=== PATIENT | female | born 1950 | race Caucasian/White ===

== ENCOUNTER 2019-08-26 13:16 | Inpatient (IN) | payer MEDICARE, MEDICAID ==
[~2019-08-26] VITALS: Wt 76.4 kg
[2019-08-26] MEDS ORDERED: ATIVAN0.5 MG PO (13:58)
[2019-08-26] MEDS ORDERED: CARDIZEM CD180 MG PO (13:58)
[2019-08-26] MEDS ORDERED: COMBIVENT RESPIM4 GM INH (13:59)
[2019-08-26] MEDS ORDERED: FLONASE ALLERG9.9 ML NAS (14:00)
[2019-08-26] MEDS ORDERED: PROZAC40 M1 PO (14:00)
[2019-08-26] MEDS ORDERED: MIRALAX17 GM PO ×2 (14:01→14:04)
[2019-08-26] MEDS ORDERED: HEMORRHOID 1%-156 GM R (14:02)
[2019-08-26] MEDS ORDERED: LASIX20 MG PO (14:03)
[2019-08-26] MEDS ORDERED: ALEVE220 MG PO (14:05)
[2019-08-26] MEDS ORDERED: NYSTATIN1 EAC3 T (14:06)
[2019-08-26] MEDS ORDERED: K-TAB10 MEQ PO (14:08)
[2019-08-26] MEDS ORDERED: OMEPRAZOLE40 MG PO (14:10)
[2019-08-26] MEDS ORDERED: SENNA PLUS 8.61 EACH PO (14:11)
[2019-08-26] MEDS ORDERED: SEROQUEL XR400 MG PO (14:11)
[2019-08-26] MEDS ORDERED: SYNTHROID,LEVO75 MCG PO (14:12)
[2019-08-26] MEDS ORDERED: TRAZODONE50 MG PO (14:13)
[2019-08-26] MEDS ORDERED: ZOFRAN4 MG PO (14:14)
[2019-08-26] MEDS ORDERED: ZYRTEC ALLERGY10 MG PO (14:15)
[2019-08-26 15:49] VITALS: BP 143/90
[2019-08-26 19:49] VITALS: BP 126/68
[2019-08-27 06:44] LABS: BASO # 0.1 10*3/uL (0.0-0.1); BASO % 0.5 % (0.0-1.0); EOS # 0.3 10*3/uL (0.0-0.4); EOS % 2.6 % (1.0-4.0); HEMATOCRIT 37.8 % (37.0-47.0); LYMPH # 1.4 10*3/uL (1.3-4.4); LYMPH % 13.9 % (27.0-41.0); MEAN CELL VOLUME 95.2 fl (81.0-99.0); MEAN CORPUSCULAR HGB 31.2 pg (27.0-31.0); MEAN CORPUSCULAR HGB CONC 32.8 g/dl (33.0-37.0); MEAN PLATELET VOLUME 11.2 fl (9.6-12.3); MONO # 0.6 10*3/uL (0.1-1.0); MONO % 6.4 % (3.0-9.0); NEUT # 7.4 10*3/uL (2.3-7.9); NEUT % 76.3 % (47.0-73.0); PLATELET COUNT AUTOMATED 300 10*3/uL (130-400); RED BLOOD COUNT 3.97 10*6/uL (4.10-5.10); RED CELL DISTRI WIDTH 15.2 % (0-14.5); WHITE BLOOD COUNT 9.7 10*3/uL (4.8-10.8)
[2019-08-27 07:12] LABS: CHLORIDE 107 mmol/L (98-107); POTASSIUM 3.9 mmol/L (3.5-5.1); SODIUM 139 mmol/L (136-145)
[2019-08-27 07:39] LABS: ALBUMIN 3.3 gm/dl (3.1-4.5); ALKALINE PHOSPHATASE 166 U/L (45-117); BUN 12 mg/dl (7-24); CHOLESTEROL 179 mg/dL (<200); CREATININE 1.05 mg/dL (0.55-1.02); HDL CHOLESTEROL 76 mg/dl (40-60); LDL CHOLESTEROL 84 mg/dL (9-159); SGOT/AST 13 IU/L (3-35); SGPT/ALT 15 U/L (12-78); TOTAL PROTEIN 7.9 gm/dL (6.4-8.2); TRIGLYCERIDES 94 mg/dl (<150); VLDL CHOLESTEROL 19 mg/dL (6-40)
[2019-08-27 07:42] VITALS: BP 127/79
[2019-08-27 07:57] LABS: VITAMIN D, 25-HYDROXY 10.8 ng/mL (30-100)
[2019-08-27 20:00] VITALS: BP 112/64
[2019-08-28 08:00] VITALS: BP 145/66
[2019-08-28 09:40] LABS: BILIRUBIN NEGATIVE (NEGATIVE); BLOOD NEGATIVE (NEGATIVE); CLARITY CLOUDY (CLEAR); COLOR YELLOW (YELLOW); GLUCOSE NEGATIVE (NEGATIVE); KETONE NEGATIVE (NEGATIVE); LEUKO ESTERASE 2+ (NEGATIVE); NITRITE POSITIVE (NEGATIVE); SPECIFIC GRAVITY 1.005 (1.005-1.030); UROBILINOGEN 0.2 E.U./dl (0.2-1.0); WBC TNTC wbc/hpf (0-5)
[2019-08-28 09:41] LABS: BACTERIA 3+
[2019-08-28 19:57] VITALS: BP 119/67
[2019-08-29 08:00] VITALS: BP 139/68
[2019-08-29 20:00] VITALS: BP 104/63
[2019-08-30 07:55] VITALS: BP 113/75
[2019-08-30 20:00] VITALS: BP 110/60
[2019-08-31 07:51] VITALS: BP 116/60
[2019-08-31 19:59] VITALS: BP 120/65
[2019-09-01 07:37] VITALS: BP 128/87
[2019-09-01 20:00] VITALS: BP 144/74
[2019-09-02 07:39] VITALS: BP 125/80
[2019-09-02 20:00] VITALS: BP 114/66
[2019-09-03 08:00] VITALS: BP 128/72
[2019-09-03 20:00] VITALS: BP 149/72
[2019-09-04 08:00] VITALS: BP 115/88
[2019-09-04 19:52] VITALS: BP 116/61
[2019-09-05 07:41] VITALS: BP 136/81
[2019-09-05 20:00] VITALS: BP 123/86
[2019-09-06 07:43] VITALS: BP 115/61
[2019-09-06 20:00] VITALS: BP 122/68
[2019-09-07 08:00] VITALS: BP 122/89
[2019-09-07 19:04] VITALS: BP 118/65
[2019-09-08 07:25] VITALS: BP 112/60
[2019-09-08 19:22] VITALS: BP 96/63
[2019-09-08 20:03] VITALS: BP 118/68
[2019-09-09 08:00] VITALS: BP 119/81
[2019-09-09 10:54] LABS: HEMATOCRIT 35.4 % (37.0-47.0); MEAN CELL VOLUME 93.7 fl (81.0-99.0); MEAN CORPUSCULAR HGB 30.2 pg (27.0-31.0); MEAN CORPUSCULAR HGB CONC 32.2 g/dl (33.0-37.0); MEAN PLATELET VOLUME 11.6 fl (9.6-12.3); PLATELET COUNT AUTOMATED 185 10*3/uL (130-400); RED BLOOD COUNT 3.78 10*6/uL (4.10-5.10); RED CELL DISTRI WIDTH 14.6 % (0-14.5); WHITE BLOOD COUNT 13.5 10*3/uL (4.8-10.8)
[2019-09-09 11:09] LABS: ALBUMIN 3.5 gm/dl (3.1-4.5); ALKALINE PHOSPHATASE 127 U/L (45-117); BUN 10 mg/dl (7-24); CHLORIDE 107 mmol/L (98-107); CREATININE 1.06 mg/dL (0.55-1.02); POTASSIUM 3.4 mmol/L (3.5-5.1); SGOT/AST 14 IU/L (3-35); SGPT/ALT 18 U/L (12-78); SODIUM 138 mmol/L (136-145); TOTAL PROTEIN 7.6 gm/dL (6.4-8.2)
[2019-09-09 11:11] LABS: PLATELET SUFFICIENCY NORMAL (NORMAL); TOTAL CELLS COUNTED 100 #CELLS
[2019-09-09 12:18] LABS: CLARITY SL CLOUDY (CLEAR); COLOR YELLOW (YELLOW)
[2019-09-09 12:19] LABS: BACTERIA 4+; BILIRUBIN NEGATIVE (NEGATIVE); BLOOD NEGATIVE (NEGATIVE); GLUCOSE NEGATIVE (NEGATIVE); KETONE NEGATIVE (NEGATIVE); LEUKO ESTERASE 3+ (NEGATIVE); NITRITE POSITIVE (NEGATIVE); PH 7.5 (5.0-9.0); SPECIFIC GRAVITY 1.005 (1.005-1.030); UROBILINOGEN 0.2 E.U./dl (0.2-1.0); WBC 51-100 wbc/hpf (0-5)
[2019-09-09 19:52] VITALS: BP 116/61
[2019-09-10 07:30] VITALS: BP 124/75
[2019-09-10 19:30] VITALS: BP 132/84
[2019-09-11 07:27] VITALS: BP 113/69
[2019-09-11 19:40] VITALS: BP 110/60
[2019-09-12 07:37] VITALS: BP 107/75
[2019-09-12 11:03] LABS: BASO % 0.2 % (0.0-1.0); EOS # 0.1 10*3/uL (0.0-0.4); EOS % 1.1 % (1.0-4.0); LYMPH # 0.7 10*3/uL (1.3-4.4); LYMPH % 8.3 % (27.0-41.0); MEAN CELL VOLUME 94.6 fl (81.0-99.0); MEAN CORPUSCULAR HGB 30.3 pg (27.0-31.0); MEAN PLATELET VOLUME 11.8 fl (9.6-12.3); MONO # 0.5 10*3/uL (0.1-1.0); MONO % 6.1 % (3.0-9.0); NEUT # 6.8 10*3/uL (2.3-7.9); NEUT % 83.9 % (47.0-73.0); PLATELET COUNT AUTOMATED 229 10*3/uL (130-400); RED CELL DISTRI WIDTH 14.6 % (0-14.5); WHITE BLOOD COUNT 8.1 10*3/uL (4.8-10.8)
[2019-09-12 11:22] LABS: ALBUMIN 3.4 gm/dl (3.1-4.5); ALKALINE PHOSPHATASE 109 U/L (45-117); BUN 10 mg/dl (7-24); CHLORIDE 107 mmol/L (98-107); CREATININE 1.04 mg/dL (0.55-1.02); POTASSIUM 3.7 mmol/L (3.5-5.1); SGOT/AST 11 IU/L (3-35); SGPT/ALT 15 U/L (12-78); SODIUM 140 mmol/L (136-145); TOTAL PROTEIN 7.2 gm/dL (6.4-8.2)
[2019-09-12 20:00] VITALS: BP 102/72
[2019-09-13 07:33] VITALS: BP 102/52
[2019-09-13 09:04] VITALS: BP 112/70
[2019-09-13 13:35] LABS: BILIRUBIN NEGATIVE (NEGATIVE); CLARITY CLOUDY (CLEAR); COLOR YELLOW (YELLOW); GLUCOSE NEGATIVE (NEGATIVE); KETONE NEGATIVE (NEGATIVE)
[2019-09-13 13:36] LABS: BLOOD TRACE-INTACT (NEGATIVE); LEUKO ESTERASE 3+ (NEGATIVE); NITRITE NEGATIVE (NEGATIVE); UROBILINOGEN 0.2 E.U./dl (0.2-1.0)
[2019-09-13 13:39] LABS: BACTERIA 3+; RBC 0-2 rbc/hpf (0-2); WBC 51-100 wbc/hpf (0-5)
[2019-09-13 19:26] VITALS: BP 106/60
[2019-09-14 07:48] VITALS: BP 129/84
[2019-09-14 11:13] LABS: HEMATOCRIT 38.8 % (37.0-47.0); MEAN CELL VOLUME 95.8 fl (81.0-99.0); MEAN CORPUSCULAR HGB 30.1 pg (27.0-31.0); MEAN CORPUSCULAR HGB CONC 31.4 g/dl (33.0-37.0); MEAN PLATELET VOLUME 12.4 fl (9.6-12.3); PLATELET COUNT AUTOMATED 227 10*3/uL (130-400); RED BLOOD COUNT 4.05 10*6/uL (4.10-5.10); RED CELL DISTRI WIDTH 14.6 % (0-14.5); WHITE BLOOD COUNT 19.8 10*3/uL (4.8-10.8)
[2019-09-14 11:35] LABS: PLATELET SUFFICIENCY NORMAL (NORMAL); POLYCHROMASIA SLIGHT; TOTAL CELLS COUNTED 100 #CELLS
[2019-09-14 12:38] LABS: ALBUMIN 3.4 gm/dl (3.1-4.5); CREATININE 1.37 mg/dL (0.55-1.02); POTASSIUM 3.5 mmol/L (3.5-5.1); TOTAL PROTEIN 7.8 gm/dL (6.4-8.2)
[2019-09-14 20:00] VITALS: BP 112/60
[2019-09-15 06:22] LABS: BASO % 0.1 % (0.0-1.0); EOS % 0.1 % (1.0-4.0); HEMATOCRIT 36.1 % (37.0-47.0); LYMPH # 0.6 10*3/uL (1.3-4.4); LYMPH % 4.4 % (27.0-41.0); MEAN CELL VOLUME 95.5 fl (81.0-99.0); MEAN CORPUSCULAR HGB 30.4 pg (27.0-31.0); MEAN CORPUSCULAR HGB CONC 31.9 g/dl (33.0-37.0); MEAN PLATELET VOLUME 11.9 fl (9.6-12.3); MONO # 1.2 10*3/uL (0.1-1.0); MONO % 8.3 % (3.0-9.0); NEUT # 12.7 10*3/uL (2.3-7.9); NEUT % 86.6 % (47.0-73.0); PLATELET COUNT AUTOMATED 201 10*3/uL (130-400); RED BLOOD COUNT 3.78 10*6/uL (4.10-5.10); RED CELL DISTRI WIDTH 14.7 % (0-14.5); WHITE BLOOD COUNT 14.7 10*3/uL (4.8-10.8)
[2019-09-15 06:35] LABS: ALBUMIN 3.2 gm/dl (3.1-4.5); CREATININE 1.32 mg/dL (0.55-1.02); POTASSIUM 3.2 mmol/L (3.5-5.1); TOTAL PROTEIN 7.4 gm/dL (6.4-8.2)
[2019-09-15 08:00] VITALS: BP 127/65
[2019-09-15 19:38] VITALS: BP 110/69
[2019-09-16 06:48] LABS: HEMATOCRIT 35.7 % (37.0-47.0); MEAN CELL VOLUME 98.3 fl (81.0-99.0); MEAN CORPUSCULAR HGB CONC 30.5 g/dl (33.0-37.0); MEAN PLATELET VOLUME 12.8 fl (9.6-12.3); PLATELET COUNT AUTOMATED 145 10*3/uL (130-400); RED BLOOD COUNT 3.63 10*6/uL (4.10-5.10); RED CELL DISTRI WIDTH 15.2 % (0-14.5); WHITE BLOOD COUNT 9.2 10*3/uL (4.8-10.8)
[2019-09-16 06:53] LABS: BUN 12 mg/dl (7-24); CHLORIDE 113 mmol/L (98-107); CREATININE 1.07 mg/dL (0.55-1.02); POTASSIUM 3.8 mmol/L (3.5-5.1); SODIUM 143 mmol/L (136-145)
[2019-09-16 07:16] LABS: PLATELET SUFFICIENCY NORMAL (NORMAL); TOTAL CELLS COUNTED 100 #CELLS
[2019-09-16 07:40] VITALS: BP 113/68
[2019-09-16 19:29] VITALS: BP 111/58
[2019-09-17 06:32] LABS: ALBUMIN 3.1 gm/dl (3.1-4.5); ALKALINE PHOSPHATASE 123 U/L (45-117); BUN 13 mg/dl (7-24); CHLORIDE 112 mmol/L (98-107); CREATININE 1.08 mg/dL (0.55-1.02); POTASSIUM 3.5 mmol/L (3.5-5.1); SGOT/AST 16 IU/L (3-35); SGPT/ALT 23 U/L (12-78); SODIUM 142 mmol/L (136-145); TOTAL PROTEIN 7.4 gm/dL (6.4-8.2)
[2019-09-17 07:21] VITALS: BP 135/81
[2019-09-17 20:00] VITALS: BP 130/76
[2019-09-18 07:37] VITALS: BP 111/58
[2019-09-18 20:24] VITALS: BP 113/68
[2019-09-19 07:44] VITALS: BP 109/71
[2019-09-19 08:04] VITALS: BP 132/72
[2019-09-19 19:47] VITALS: BP 127/81
[2019-09-19 20:43] VITALS: BP 122/86
[2019-09-20 08:00] VITALS: BP 123/63
[2019-09-20 19:49] VITALS: BP 126/68
[2019-09-21 08:00] VITALS: BP 114/64
[2019-09-21 09:10] VITALS: BP 110/62
[2019-09-21 19:05] VITALS: BP 103/52
[2019-09-22 07:40] VITALS: BP 129/69
[2019-09-22 19:38] VITALS: BP 126/58
[2019-09-23 08:00] VITALS: BP 113/63
[2019-09-23] MEDS ORDERED: LITHIUM CARBON150 MG PO (08:54)
[2019-09-23] MEDS ORDERED: ZOLPIDEM TART5 MG PO (08:54)
[2019-09-23] MEDS ORDERED: VITAMIN D3125 MC1 PO (08:54)
[2019-09-23] MEDS ORDERED: TRIHEXYPHENIDYL2 M3 PO (08:54)
[2019-09-23] MEDS ORDERED: MIRTAZAPINE15 M2 PO (08:54)
[2019-09-23] MEDS ORDERED: XARELTO1 EACH PO (11:10)
== END 2019-09-23 12:07 | disposition other institution (70) | DRG 885 ==
LOC: 3N 13:16
PROVIDERS: Counselor Professional; Family Medicine; Internal Medicine; Registered Nurse; ADMIT Psychiatry & Neurology Psychiatry
PROC: 0HBRXZZ Excision of Toe Nail, External Approach (ICD-10-PCS; principal; 2019-09-01)
DX: F25.9 Schizoaffective disorder, unspecified (principal); N39.0 Urinary tract infection, site not specified; I50.9 Heart failure, unspecified; K64.9 Unspecified hemorrhoids; I11.0 Hypertensive heart disease with heart failure; E03.9 Hypothyroidism, unspecified; K21.9 Gastro-esophageal reflux disease without esophagitis; K59.00 Constipation, unspecified; J30.2 Other seasonal allergic rhinitis; G89.29 Other chronic pain; L60.0 Ingrowing nail; M19.90 Unspecified osteoarthritis, unspecified site; F32.9 Major depressive disorder, single episode, unspecified; G47.00 Insomnia, unspecified; F41.9 Anxiety disorder, unspecified; E11.9 Type 2 diabetes mellitus without complications; Z79.899 Other long term (current) drug therapy; Z03.818 Encounter for observation for suspected exposure to other biological agents ruled out; Z88.2 Allergy status to sulfonamides; Z88.0 Allergy status to penicillin; Z88.8 Allergy status to other drugs, medicaments and biological substances

== ENCOUNTER 2019-12-06 16:36 | Inpatient (IN) | payer MEDICARE, MEDICAID ==
[~2019-12-06] VITALS: Ht 165.1 cm; Wt 69.4 kg
[~2019-12-06 16:36] MED LIST: ALEVE220 MG PO; ATIVAN0.5 MG PO; CARDIZEM CD180 MG PO; COMBIVENT RESPIM4 GM INH; FLONASE ALLERG9.9 ML NAS; HEMORRHOID 1%-156 GM R; K-TAB10 MEQ PO; LASIX20 MG PO; LITHIUM CARBON150 MG PO; MIRALAX17 GM PO; MIRTAZAPINE15 M2 PO; NYSTATIN1 EAC3 T; OMEPRAZOLE40 MG PO; PROZAC40 M1 PO; SENNA PLUS 8.61 EACH PO; SEROQUEL XR400 MG PO; SYNTHROID,LEVO75 MCG PO; TRAZODONE50 MG PO; TRIHEXYPHENIDYL2 M3 PO; VITAMIN D3125 MC1 PO; XARELTO1 EACH PO; ZOFRAN4 MG PO; ZOLPIDEM TART5 MG PO; ZYRTEC ALLERGY10 MG PO
[2019-12-06] MEDS ORDERED: SENOKOT-S TABL1 EACH PO (17:30)
[2019-12-06] MEDS ORDERED: LITHIUM CARBON150 MG PO (17:32)
[2019-12-06] MEDS ORDERED: LITHIUM CARBON300 MG PO (17:33)
[2019-12-06] MEDS ORDERED: XARELTO10 MG PO (17:33)
[2019-12-06] MEDS ORDERED: TYLENOL325 M1 PO (17:34)
[2019-12-06] MEDS ORDERED: CAPLYTA42 MG PO (17:34)
[2019-12-06] MEDS ORDERED: MAALOX ADVANCE355 M1 PO (17:35)
[2019-12-06] MEDS ORDERED: MILK OF MA400 MG/5 M PO (17:36)
[2019-12-06] MEDS ORDERED: REMERON15 M2 PO (18:31)
[2019-12-07] MEDS ORDERED: CARTIA XT180 MG PO (13:59)
[2019-12-07] MEDS ORDERED: TYLENOL325 M2 PO (14:08)
[2019-12-07] MEDS ORDERED: CLARITIN10 MG PO (14:10)
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
--- NOTE | 2019-12-07 14:12 | NUR ---
MIKAYLA CHERY a 69 year old F admitted via ambulance from the ADMITTING as a voluntary BY LEGAL GUARDIAN admission. Arrived on unit at 1412. ALLERGIES: MULTIPLE SEE LIST. Vital signs are: 97.2-89-17 115/84 98%RA. The FOLLOWING CONSENTS WERE OBTAINED VIA TELEPHONE FROM LEGAL GUARDIAN WITNESSED BY 2 RN'S: Authorization For The Release of Medical Information, Clothing List, Consent to Voluntary Admission and Hospitalization, Consent and Release Forms/Receipt of Rights, Acknowledgement of Advance Directive Information, Behavioral Health Consent Form, and Informed Consent of Medications. Admitted under the services of Dr. REAGAN SIERRA,JOHANNA. A search was conducted and hazardous articles were removed. Client was oriented to the unit. KASSY OGDEN
[2019-12-07] MEDS ORDERED: MAALOX ADVANCE355 M1 PO (14:16)
[2019-12-07 14:17] VITALS: BP 115/84
[2019-12-07] MEDS ORDERED: MILK OF MA400 MG/5 M PO (14:17)
[2019-12-07] MEDS ORDERED: PROCTOSOL-HC28.35 GM R (14:20)
[2019-12-07] MEDS ORDERED: SENOKOT-S TABL1 EACH PO (14:22)
--- NOTE | 2019-12-07 14:33 | NUR ---
CALL PLACED TO HOSPITALIST CELL NUMBER ONE FOR , SPOKE TO . MADE AWARE OF NEW CONSULT FOR MEDICAL MANAGEMENT. STATES TO PLACE CONSULT UNDER .
--- NOTE | 2019-12-07 15:02 | NUR ---
ON UNIT TO SEE PT AT THIS TIME.
[2019-12-07 15:17] VITALS: BP 115/84
--- NOTE | 2019-12-07 16:30 | NUR ---
ON UNIT TO SEE PT
[2019-12-07 16:38] LABS: BASO # 0.1 10*3/uL (0.0-0.1); BASO % 0.5 % (0.0-1.0); EOS # 0.1 10*3/uL (0.0-0.4); EOS % 1.2 % (1.0-4.0); HEMATOCRIT 39.7 % (37.0-47.0); LYMPH # 1.3 10*3/uL (1.3-4.4); LYMPH % 12.8 % (27.0-41.0); MEAN CELL VOLUME 94.3 fl (81.0-99.0); MEAN CORPUSCULAR HGB 29.2 pg (27.0-31.0); MEAN PLATELET VOLUME 11.8 fl (9.6-12.3); MONO # 0.7 10*3/uL (0.1-1.0); MONO % 6.8 % (3.0-9.0); NEUT # 8.3 10*3/uL (2.3-7.9); NEUT % 78.5 % (47.0-73.0); PLATELET COUNT AUTOMATED 221 10*3/uL (130-400); RED BLOOD COUNT 4.21 10*6/uL (4.10-5.10); RED CELL DISTRI WIDTH 15.2 % (0-14.5); WHITE BLOOD COUNT 10.5 10*3/uL (4.8-10.8)
--- NOTE | 2019-12-07 16:43 | NUR ---
Nursing screen and chart review completed. Patient admitted to [facility] with exacerbation of schizoaffective disorder with delusion and paranoia. Patient is baseline confusion. If patient should have difficulty with ADls or in need of d/c planning, then refer to OT for further assessment.Thank you. Elizabeth Moore OTR/l
[2019-12-07 17:06] LABS: ALBUMIN 3.6 gm/dl (3.1-4.5); CREATININE 1.36 mg/dL (0.55-1.02); POTASSIUM 3.8 mmol/L (3.5-5.1); TOTAL PROTEIN 7.6 gm/dL (6.4-8.2)
[2019-12-07 19:39] VITALS: BP 146/68
--- NOTE | 2019-12-07 22:40 | NUR ---
ISOLATIVE TO ROOM. REFUSES TO CHANGE CLOTHING FOR BEDTIME. ASKED TO LET US WASH CLOTHING AND SHE GOT AGGITATED STATING HER CLOTHES WERE WASHED YESTERDAY AND THEY DON'T NEED TO BE WASHED. SPEECH INTERMITTENTLY SLURRED/GARBLED. MEDICATION COMPLIANT. WILL MONTIOR FOR CHANGES IN MOOD/BEHAVIOR AND Q 15 MINS AND PRN FOR SAFETY
--- NOTE | 2019-12-08 00:22 | NUR ---
24 HR chart check completed.
--- NOTE | 2019-12-08 05:32 | NUR ---
DR YUN NOTIFIED THAT MEDICAL MEDICATION NEED ORDERED
--- NOTE | 2019-12-08 05:32 | NUR ---
CLIENT UP. TONGUE APPEARS TO INTTERFER WITH HER SPEECH. DR WILL BE NOTIFIED
--- NOTE | 2019-12-08 05:42 | NUR ---
SLEPT 6.5 HOURS
[2019-12-08 07:11] LABS: FREE T4 0.94 ng/dl (0.76-1.46)
--- NOTE | 2019-12-08 07:39 | NUR ---
Patient resting quietly with no c/o discomfort. Respirations easy and regular. Vital signs stable. No overt distress. JAYE DIAMOND
[2019-12-08 07:52] VITALS: BP 126/59
[2019-12-08 08:01] LABS: THYROID STIM HORMONE (HS) 4.56 uIU/ml (0.358-4.75)
[2019-12-08 08:45] LABS: VITAMIN D, 25-HYDROXY 54.8 ng/mL (30-100)
--- NOTE | 2019-12-08 09:00 | NUR ---
Treatment Plan meeting was held this a.m. with Dr. Aguirre, RN, AT, MACHINE PULLER AND LASTER-S and Sales Leader in attendance. Plan for discharge Next Week. Pt. came to [facility] from [facility]. Will reach out to facility today to discuss discharge Planning.
--- NOTE | 2019-12-08 11:43 | NUR ---
AM GROUP PT WAS IN HER ROOM SEARCHING FOR HER STUFFED DOG, CONVINCED THAT WE WERE HIDING IT FROM HER. PT WAS ASSURED THAT THE DOG WAS NOT SENT WITH HER. AN ATTEMPT WAS MADE TO ASSESS PT BUT SHE WAS EVASIVE AND BEGAN PACING THE MCMULLEN. PT CAME INTO GROUP THERAPY FOR A SHORT TIME AND WAS OFFERED AN ACTIVITY BUT DECLINED.
--- NOTE | 2019-12-08 11:59 | NUR ---
PHYSICAL THERAPY Screen received pt admitted from [facility] for MDD and schiziophrenia please consult PT if pt has a decline in functional status from baseline thank you Michaela Atkins PT
--- NOTE | 2019-12-08 12:07 | NUR ---
Spoke with Minerva at [facility]. Provided with updates and discussed discharge Plans for next week. Pt. is currently out of Bed Hold days so she would require a Level of Care Completed Prior to return to Facility.
--- NOTE | 2019-12-08 14:16 | NUR ---
P- IRRITABLE, RAPID/SLURRED SPEECH. PT REPORTS FEELING ANXIOUS AT TIMES. I- ORIENTATION, MOOD AND BEHAVIORS ASSESSED. ASSESSED PT FOR SI/HI, INTENT OR PLAN. ASSESSED PT FOR S/S HALLUCINATIONS, PARANOIA AND/OR DELUSIONS. MEDICATIONS ADMINISTERED PER PHYSICIAN'S ORDERS. ASSISTANCE WITH ADL CARE PROVIDED NEEDED. ENCOURAGED PT TO ATTEND AND PARTICIPATE IN [facility] AND ACTIVITIES. R- PT IS ALERT AND ORIENTED TO PERSON, PLACE AND TIME. NOT SITUATION. MEMORY APPEARS TO BE INTACT. RESPS EASY AND EVEN ON ROOM AIR. MOOD IRRITABLE AT TIMES, AFFECT BROAD RANGE. SPEECH IS RAPID, SLURRED. PT IS ABLE TO MAKE NEEDS KNOWN WITHOUT DIFFICULTY. PT REPORTS FEELING ANXIOUS AT TIMES BUT DENIES FEEILNG DEPRESSED OR HOPELESS. PT DENIES HALLUCINATIONS, NO RESPONSE TO INTERNAL STIMULI NOTED. NO PARANOIA OR DELUSIONS NOTED. PT DENIES SI/HI, INTENT OR PLAN. PT IRRITABLE THIS AM SHE STATED SHE BELIEVED WE WERE HIDING HER STUFFED DOG "BEEZLEY" FROM HER. ADVISED PT SHE DID NOT BRING BEEZLEY WITH HER. PT STATES "YES I DID. NOW DON'T TELL ME THAT SHIT". PT CALMED SELF. NO OTHER BEHAVIORS. NO PHYSICAL AGGRESSION. PT IS MEDICATION COMPLIANT WITHOUT DIFFICULTY. NO DISTRESS NOTED. P- PLAN TO CONTINUE CURRENT TREATMENT, CONTINUE TO MONITOR MOOD AND BEHAVIORS, PROVIDE APPROPRIATE REORIENTATION AND REDIRECTION NEEDED. CONTNIUE TO ENCOURAGE MEDICATION COMPLIANCE WELL GROUP ATTENDANCE AND PARTICIPATION.
--- NOTE | 2019-12-08 15:43 | NUR ---
PM GROUP PT WAS IN AND OUT OF AFTERNOON GROUP THERAPY AND HELPED TO UNTANGLE YARN FOR A SHORT TIME. PT WAS TALKATIVE AND DID NOT EXPRESS ANY HALLUCINATIONS OR DELUSIONS WHILE IN GROUP.
[2019-12-08 19:56] VITALS: BP 110/62
--- NOTE | 2019-12-08 20:05 | NUR ---
CAME TO DESK AND SAID I PEED ALITTLE AND THAT IS ALL YOU'R GONNA GET OUT OF ME. I SAID THAT WAS FINE AND WE COULD WAIT TILL SHE PEES MORE. SHE THEN REPLIED WHEN I GET OUT OF HERE I AM GETTING THE PROSECUTOR. SHE THEN WENT TO ROOM.
--- NOTE | 2019-12-08 21:31 | NUR ---
Patient alert and oriented to person,place and time. Mood calm,cooperative,slightly irritable at times and isolative to herself. Patient denies any SI/HI or hallucinations. No s/s of any responding to internal stimuli noted at this time. Patient compliant with HS medications without any difficulty. Provided 1:1 for emotional support. Plan to continue to encourage medication compliance and encourage patient to have more interaction with other patients. Also continue to offer emotional support when needed. Will continue to monitor moods/behaviors. Q 15 minute safety checks continued and maintained. See [facility] flowsheet for further documentation.
--- NOTE | 2019-12-09 00:15 | NUR ---
24 HR chart check completed.
--- NOTE | 2019-12-09 05:37 | NUR ---
Patient slept approx. 1.5 hours throughout shift. Q 15 minute safety checks continued and maintained.
[2019-12-09 07:46] VITALS: BP 115/74
--- NOTE | 2019-12-09 09:00 | NUR ---
Treatment Plan meeting was held this a.m. with Dr. Aguirre via telephone, FINAL INSPECTOR Gina, RN, AT, ACQUISITION EDITOR-S and Government Relations Manager in attendance. Plan for discharge Next Week. Pt. will return to [facility].
--- NOTE | 2019-12-09 09:32 | NUR ---
ON UNIT TO SEE PT AT THIS TIME.
--- NOTE | 2019-12-09 11:37 | NUR ---
Clinical Updates faxed to [facility] Attn: Minerva.
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
[2019-12-09 20:00] VITALS: BP 101/59
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
[2019-12-10 05:47] LABS: BILIRUBIN Negative (Negative); BLOOD Negative (Negative); CLARITY Clear (Clear); COLOR Yellow (Yellow); GLUCOSE Negative (Negative); KETONE Negative (Negative); LEUKO ESTERASE 2+ (Negative); NITRITE Negative (Negative); SPECIFIC GRAVITY <= 1.005 (1.001-1.030); UROBILINOGEN 0.2 E.U./dl (0.0-1.0)
[2019-12-10 06:07] LABS: BACTERIA 1+; EPITHELIAL CELLS 16-20; RBC 0-2 rbc/hpf (0-2); WBC 21-30 wbc/hpf (0-5)
--- NOTE | 2019-12-10 06:22 | NUR ---
PATIENT SLEPT 6 HOURS OF INTERRUPTED SLEEP THROUGHOUT SHIFT. Q 15 MINUTE CHECKS MAINTAINED. 24 HR chart check completed.
[2019-12-10 07:54] VITALS: BP 104/52
--- NOTE | 2019-12-10 08:12 | NUR ---
SPOKE WITH DR GUIDRY AT [phone] RE: PT UA RESULTS, PER HE WILL TAKE A LOOK AT IT AND ORDER SOMETHING, NO FURTHER ORDERS AT THIS TIME.
--- NOTE | 2019-12-10 09:10 | NUR ---
DR TAMAYO ON UNIT TO ASSESS PT,UPDATE PROVIDED.
--- NOTE | 2019-12-10 13:08 | NUR ---
PT ALERT TO PERSON, PLACE AND TIME. PT MED COMPLIANT WITHOUT DIFFICULTY, MED EDUCATION PROVIDED. PT CALM, PLEASANT AND COOPERATIVE WITH STAFF. PT DENIES ANY HALLUCINATIONS OR DELUSIONS AT THIS TIME. PT DENIES ANY SUICIDAL THOUGHTS. PT AMBULATORY THROUGHOUT UNIT, GAIT STEADY. PT CONTINENT OF BOWEL AND BLADDER. PLAN IS TO MONITOR PT BEHAVIORS ON Q15 MIN SAFETY CHECKS, ENCOURAGE MED COMPLIANCE AND PROVIDE MED EDUCATION, PROVIDE EMOTIONAL SUPPORT AND 1:1 FOR PT TO VOICE FEELINGS.
[2019-12-10 20:00] VITALS: BP 100/54
--- NOTE | 2019-12-10 23:53 | NUR ---
P-CONFUSION I-REDIRECTION WITH 1:1 THERAPEUTIC INTERVENTIONS AND PRESENT REALITY. EDUCATE AND ENCOURAGE MEDICATION COMPLIANCE R-PATIENT MEDICATION COMPLIANT WITH MOST MEDICATIONS AT HS. PATIENT REFUSED NOURISHMENT BUT PROVIDED FLUIDS AT HS. PATIENT ISOLATIVE IN ROOM THIS SHIFT. PATIENT ON CIPRO FOR +UTI WITH NO ADVERSE REACTION. PATIENT AMBULATORY ON UNIT WITH STEADY GAIT. PATIENT WITH NO HALLUCINATIONS OR DELUSIONS. PATIENT WITH NO HOMICIDAL OR SUICIDAL IDEATIONS. P-CONTINUE TO ENCOURAGE MEDICATION COMPLIANCE, CONTINUE TO PRESENT REALITY, ENCOURAGE GROUP THERAPY WHILE AWAKE
--- NOTE | 2019-12-11 06:51 | NUR ---
PATIENT SLEPT 3 HOURS INTERRUPTED SLEEP THROUGHOUT SHIFT. Q 15 MINUTE CHECKS MAINTAINED. 24 HR chart check completed.
[2019-12-11 07:38] VITALS: BP 140/75
--- NOTE | 2019-12-11 09:05 | NUR ---
DR TAMAYO ON UNIT TO ASSESS PATIENT, UPDATE PROVIDED.
[2019-12-11 20:00] VITALS: BP 109/64
--- NOTE | 2019-12-11 21:10 | NUR ---
24 HR chart check completed.
--- NOTE | 2019-12-11 22:30 | NUR ---
PT ALERTI TO SELF, CONFUSED AT TIMES. DENIES SI/HI, HALLUCINATIONS AND PARANOIA. NO RESPONSE TO INTERNAL STIMULI NOTED. MEDICATION COMPLIANT. RESTING IN BED AT THIS TIME.
--- NOTE | 2019-12-12 05:57 | NUR ---
PT SLEPT 5.5 HOURS. RESTING IN BED AT THIS TIME. Q 15 MIN CHECKS MAINTAINED.
[2019-12-12 07:33] VITALS: BP 110/70
--- NOTE | 2019-12-12 07:52 | NUR ---
PHYSICAL THERAPY Screen received pt admitted from [facility] for MDD and schiziophrenia please consult PT if pt has a decline in functional status from baseline thank you Michaela Atkins PT
--- NOTE | 2019-12-12 08:43 | NUR ---
guardian updated on wound and new orders.
--- NOTE | 2019-12-12 09:00 | NUR ---
Treatment Plan meeting was held this a.m. with Dr. Aguirre, BRADLEY Fuentes, RN, AT, SET OFF PRESS OPERATOR-S and Information And Data Architect Analyst in attendance. Plan for discharge Thursday pending Level of care is received. Pt. will return to [facility] at discharge.
--- NOTE | 2019-12-12 11:40 | NUR ---
DR. HOWELL ON UNIT TO ASSESS PATIENT.
--- NOTE | 2019-12-12 16:03 | NUR ---
Nursing screen received and chart reviewed. Patient admitted to [facility] from [facility] with an increase in her psychosis. If patient should have a decline in her baseline ADL status then refer to OT for further assessment. Thank you. Elizabeth Moore OTR/L
--- NOTE | 2019-12-12 16:48 | NUR ---
NO ADVERSE MOODS OR BEHAVIORS NOTED. BEHAVIORS MONITORED WITH Q15 MINUTE SAFETY CHECKS. MEDICATION COMPLIANT. MEDICATION EDUCATION PROVIDED. CONTINUE TO MONITOR BEHAVIORS WITH Q15 MINUTE SAFETY CHECKS AND ENCOURAGE MEDICATION COMPLIANCE. SEE [facility] FLOWSHEET FOR SPECIFIC MONITORING.
[2019-12-12 19:39] VITALS: BP 112/72
--- NOTE | 2019-12-12 20:59 | NUR ---
PT AT TIMES NEEDS REDIRECTION DUE TO BEING INTRUSIVE FOR VARIES WANTS AND DEMANDS DESPITE ALL NEEDS BEING MET. PT ADMITS TO BEING HAPPY ABOUT GOING HOME. MEDICATION COMPLIANT. RESTING IN BED AT THIS TIME. Q 15 MIN CHECKS MAINTAINED.
--- NOTE | 2019-12-13 05:53 | NUR ---
24 HR chart check completed.
--- NOTE | 2019-12-13 06:41 | NUR ---
PT SLEPT 5 HOURS WITH INTERMITTENT AWAKENINGS.
[2019-12-13 08:00] VITALS: BP 115/56
--- NOTE | 2019-12-13 08:30 | NUR ---
Treatment Plan meeting was held this a.m. with Dr. Aguirre via telephone, BID CLERK Gina, RN, AT, SECRETARY OFFICE CLERK-S and Bilingual Speech Therapist in attendance. Plan for discharge . Pt. is to return to [facility]. Significant Change PASRR was just sent by Tita at [facility] yesterday. The Significant Change PASRR and Results are Needed to Complete the Level of Care that is required for Pt. to return to facility due to her not having any Bed Hold Days.
--- NOTE | 2019-12-13 11:03 | NUR ---
DR MERA ON UNIT TO ASSESS PATIENT, UPDATE PROVIDED.
--- NOTE | 2019-12-13 15:54 | NUR ---
PM GROUP PT DID NOT ATTEND AFTERNOON GROUP THERAPY.PT WAS IN BED RESTING.
--- NOTE | 2019-12-13 17:31 | NUR ---
A&O X2. STABLE MOOD. DENIES HALLUCINATIONS/DELUSIONS AND SI/HI. WILL MONITOR BEHAVIORS WITH Q15 MINUTE SAFETY CHECKS AND CONTINUE TO ENCOURAGE MEDICATION COMPLIANCE. PT HAS BEEN MEDICATION COMPLIANT THIS SHIFT. SEE [facility] FLOWSHEET FOR SPECIFIC MONITORING.
[2019-12-13 19:44] VITALS: BP 99/59
[2019-12-13 21:03] VITALS: BP 108/62
--- NOTE | 2019-12-13 23:06 | NUR ---
PT ALERT AN ORIENTED TO PERSON AND PLACE. ISOLATIVE TO ROOM. CALM, COOPERATIVE. MEDICATION COMPLIANT. DENIES SI/HI, HALLUCINATIONS OR PAIN. RESTING IN ROOM AT THIS TIME. WILL CONTINUE TO MONITOR FOR MOODS AND BEHAVIORS. Q 15 MIN CHECKS MAINTAINED.
--- NOTE | 2019-12-14 06:15 | NUR ---
24 HR chart check completed. PT SLEPT 6 HOURS INTERMITTENT SLEEP.
[2019-12-14 07:37] VITALS: BP 98/55
[2019-12-14 07:41] VITALS: BP 102/68
--- NOTE | 2019-12-14 09:25 | NUR ---
DR SEVILLA ON UNIT TO ASSESS PATIENT, UPDATE PROVIDED.
--- NOTE | 2019-12-14 09:56 | NUR ---
NO ADVERSE MOODS OR BEHAVIORS NOTED AT THIS TIME. PT ALERT TO PERSON, PLACE, TIME AND SITUATION. PT MED COMPLIANT WITHOUT DIFFICULTY, MED EDUCATION PROVIDED. PT CALM, MOOD IS STABLE. PT PLEASANT AND COOPERATIVE WITH STAFF AND PEERS. NO HALLUCINATIONS OR DELUSIONS NOTED AT THIS TIME. PT DENIES ANY SUICIDAL THOUGHTS. PT AMBULATORY THROUGHOUT UNIT, GAIT STEADY. PT CONTINENT OF BOWEL AND BLADDER. PLAN IS TO MONITOR PT BEHAVIORS ON Q15 MIN SAFETY CHECKS, ENCOURAGE MED COMPLIANCE AND PROVIDE MED EDUCATION, ENCORUAGE GROUP PARTICIPATION AND SOCIALIZATION, PROVIDE EMOTIONAL SUPPORT AND 1:1 FOR PT TO VOICE FEELINGS.
--- NOTE | 2019-12-14 11:15 | NUR ---
Treatment Plan meeting was held this a.m. with BRADLEY Fuentes, RN, AT, and Discharge Plannerin attendance. Plan for discharge /Thursday Pending Level of Care Returns.
--- NOTE | 2019-12-14 11:51 | NUR ---
AM GROUP PT WAS PRESENT AT THE START OF MORNING GROUP THERAPY BUT SOON THE EXERCISES BEGAN, PT LEFT THE DAYROOM. PT DID NOT RETURN.
--- NOTE | 2019-12-14 15:44 | NUR ---
PM GROUP PT WAS IN AND OUT OF THE DAYROOM DURING AFTERNOON GROUP THERAPY. PT WAS VERY JOVIAL AND TALKATIVE. PT EXHIBITED NO ADVERSE BEHAVIORS WHILE IN GROUP.
[2019-12-14 19:13] VITALS: BP 105/50
--- NOTE | 2019-12-14 21:57 | NUR ---
P-MEMORY DEFICITS I-REDIRECTION WITH 1:1 THERAPEUTIC INTERVENTIONS AND PRESENT REALITY. EDUCATE AND ENCOURAGE MEDICATION COMPLIANCE R-PATIENT MEDICATION COMPLIANT WITH MOST MEDICATIONS AT HS. PATIENT PROVIDED NOURISHMENT AND FLUIDS AT HS. PATIENT ISOLATIVE IN ROOM THIS SHIFT. PATIENT WITH NO HALLUCINATIONS OR DELUSIONS. PATIENT WITH NO HOMICIDAL OR SUICIDAL IDEATIONS. P-CONTINUE TO ENCOURAGE MEDICATION COMPLIANCE, CONTINUE TO PRESENT REALITY, ENCOURAGE GROUP THERAPY WHILE AWAKE
--- NOTE | 2019-12-15 02:05 | NUR ---
PATIENT PUT ON BATHROOM LIGHT. PATIENT CURRENTLY HAVING BLEEDING FROM HER RECTUM. PATIENT STATES "IT'S MY HEMORRHOIDS". ANUSOL CREAM NOT AVAILABLE IN PATIENT DRAWER. MESSAGE TO BE SENT TO PHARMACY. PATIENT STATING "I CAN WAIT UNTIL MORNING FOR MY CREAM FOR THE HEMORRHOIDS".
--- NOTE | 2019-12-15 06:55 | NUR ---
PATIENT SLEPT 5-6 HOURS INTERRUPTED SLEEP THROUGHOUT SHIFT. Q 15 MINUTE CHECKS MAINTAINED. 24 HR chart check completed.
[2019-12-15 07:48] VITALS: BP 122/69
--- NOTE | 2019-12-15 08:53 | NUR ---
Patient resting quietly with no c/o discomfort. Respirations easy and regular. Vital signs stable. No overt distress. JAYE DIAMOND PT ATE BREAKFAST THEN RETURNED TO BED. AWAKE, ALERT AND VERBAL. ON UNIT TO SEE PT AT THIS TIME, UPDATE GIVEN.
--- NOTE | 2019-12-15 09:30 | NUR ---
Treatment Plan meeting was held this a.m. with Dr. Aguirre, RN, AT, FOOD MOBILE DRIVER-S and [place] Mixer Operator in attendance. Plan for discharge Next Week. Level of Care is required for the Patient to return to [place] and that cannot be completed without the PASRR and Sig Change Results Letter. [facility] has been working on that.
--- NOTE | 2019-12-15 09:34 | NUR ---
ON UNIT TO SEE PT AT THIS TIME.
--- NOTE | 2019-12-15 12:00 | NUR ---
AM GROUP PT CHOSE NOT TO ATTEND MORNING GROUP THERAPY. PT STAYED IN HER ROOM
--- NOTE | 2019-12-15 14:33 | NUR ---
P: PT ISOLATIVE TO ROOM THROUGHOUT THE DAY, COMING OUT FOR MEALS ONLY AND REFUSING TO PARTICIAPTE IN GROUPS/ACTIVITIES. I: PROVIDE EMOTIONAL SUPPORT AND 1:1 FOR PT TO VOICE FEELINGS, ENCOURAGE GROUP PARTICIPATION AND SOCIALIZATION R: PT ALERT TO PERSON, PLACE AND TIME. PT MED COMPLIANT WITHOUT DIFFICULTY, MED EDUCATION PROVIDED. PT CALM, REMAINS ISOLATIVE TO ROOM THROUGOHOUT THE DAY, COMING OUT FOR MEALS ONLY. PT REFUSED TO PARTICIPATE IN GROUPS/ACTIVITIES. PT PLEASANT AND COOPERATIVE WITH STAFF. NO HALLUCINATIONS OR DELUSIONS NOTED. PT DENIES ANY SUICIDAL THOUGHTS. PT AMBULATORY THROUGHOUT UNIT, GAIT STEADY. P: MONITOR PT BEHAVIORS ON Q15 MIN SAFETY CHECKS, ENCOURAGE MED COMPLIANCE AND PROVIDE MED EDUCATION, ENCOURAGE GROUP PARTICIPATION AND SOCIALIZATION, PROVIDE EMOTIONAL SUPPORT AND 1:1 FOR PT TO VOICE FEELINGS.
--- NOTE | 2019-12-15 15:40 | NUR ---
PM GROUP PT WAS IN AND OUT OF AFTERNOON GROUP THERAPY AND SPENT MOST OF THE TIME SOCIALIZING WITH A GASOLINE TRUCK CRANE OPERATOR. PT IS PLEASANT AND HAPPY. PT EXHIBITED NO ADVERSE BEHAVIORS WHILE IN GROUP
--- NOTE | 2019-12-15 15:59 | NUR ---
Have spoken Numerous times to Tita at [facility]. She has been in touch with ARIE to inquire of status of Level 2 review. Linoleum Layer Apprentice also called [facility] and only limted information could be provided due to [facility] being the receiving facility [facility] cannot divulge that information. Pt. cannot return to facility without a Level of Care and PASRR Sig Change and Results are required to Submit the Level of Care to [facility].
[2019-12-15 19:06] VITALS: BP 116/64
--- NOTE | 2019-12-15 19:51 | NUR ---
Patient resting quietly with no c/o discomfort. Respirations easy and regular. Vital signs stable. No overt distress. MAXIM WALSH
--- NOTE | 2019-12-16 06:12 | NUR ---
PT SLEPT 6 INTERRUPTED HOURS
[2019-12-16 07:30] VITALS: BP 108/66
--- NOTE | 2019-12-16 08:30 | NUR ---
Treatment Plan meeting was held this a.m. with BRADLEY Fuentes, RN, AT, DIFFERENTIAL SPECIALIST-S and Stiff Leg Derrick Operator in attendance. Plan for chopper gun operator.Plan for discharge today if level of Care is received.
--- NOTE | 2019-12-16 11:30 | NUR ---
COURTNEY LABORER ADJUSTABLE STEEL JOIST ON UNIT TO SEE PT AT THIS TIME.
--- NOTE | 2019-12-16 11:42 | NUR ---
AM GROUP/JIMENEZ PT WAS IN MORNING GROUP THERAPY FOR A FEW MINUTES TO DRINK A QUINN CLARITZA. PT STAYED LONG ENOUGH TO FINISH IT AND LEFT THE DAYROOM. PT DID NOT RETURN.
--- NOTE | 2019-12-16 13:59 | NUR ---
Submitted information that is available to EDWARD from [facility] for Level of Care to [facility]. Call received From Lindsay Paul at [facility] who needs that Original PASRR from 2018 and results when Pt. was admitted to [facility] and the Significant Change results letter before she can complete the Level of Care. Call placed to Tita at [facility] and Spoke with Tita and notified her of the need for original PASRR and results letter. Tita states she will fax information and has not received the Letter from [facility]. Call placed to Nursing Staff to notify that Pt. cannot discharge today due to [facility] not providing the Significant Change PASRR results.
[2019-12-16] MEDS ORDERED: MEMANTINE HCL10 MG PO (14:00)
[2019-12-16] MEDS ORDERED: TRIHEXYPHENIDYL2 M3 PO (14:00)
[2019-12-16] MEDS ORDERED: RIVASTIGMINE1 EAC2 T (14:00)
[2019-12-16] MEDS ORDERED: INVEGA9 MG PO (14:00)
--- NOTE | 2019-12-16 14:19 | NUR ---
PT ALERT TO PERSON, PLACE AND TIME. PT MED COMPLIANT WITHOUT DIFFICULTY, MED EDUCATION PROVIDED. PT PLEASANT AND COOPERATIVE WITH STAFF, ISOLATIVE TO ROOM AT TIMES THROUGHOUT THE DAY. NO HALLUCINATIONS OR DELUSIONS NOTED. PT DENIES ANY SUICIDAL THOUGHTS. PT AMBULATORY THROUGHOUT UNIT, GAIT STEADY. PT CONTINENT OF BOWEL AND BLADDER. PLAN IS TO MONITOR PT BEHAVIORS ON Q15 MIN SAFETY CHECKS, ENCOURAGE MED COMPLIANCE AND PROVIDE MED EDUCATION, ENCOURAGE GROUP PARTICIPATION AND SOCIALIZATION, PROVIDE EMOTIONAL SUPPORT AND 1:1 FOR PT TO VOICE FEELINGS.
--- NOTE | 2019-12-16 14:38 | NUR ---
Clinical Updates faxed to [facility].
--- NOTE | 2019-12-16 15:38 | NUR ---
PM GROUP PT CAME INTO AFTERNOON GROUP THERAPY FOR A SHORT TIME AND SAT AND SOCIALIZED WITH THIS RATING OFFICER. PT ATE SOME ORANGES AND THEN EXITED THE ROOM. PT EXHIBITED NO ADVERSE BEHAVIORS WHILE IN GROUP.
[2019-12-16 19:57] VITALS: BP 112/63
--- NOTE | 2019-12-16 20:03 | NUR ---
Patient resting quietly with no c/o discomfort. Respirations easy and regular. Vital signs stable. No overt distress. MAXIM WALSH
[2019-12-17 08:00] VITALS: BP 132/80
--- NOTE | 2019-12-17 12:15 | NUR ---
COURTNEY ASSOCIATE MANAGER ON UNIT TO SEE PT AT THIS TIME.
--- NOTE | 2019-12-17 19:07 | NUR ---
PATIENT IS ALERT X 4; ABLE TO VOICE NEEDS. MOOD IS STABLE, DENIES HALLUCINATIONS, DELUSIONS, HI/SI OR PAIN. REFUSED SKIN TREATING TO HAND. AMBULATORY WITH STEADY GAIT. INTERACTIVE WITH STAFF AND OTHERS, PARTICIPATED IN GROUP SESSION. MEDICATION COMPLIANT. Q 15 MINUTE SAFETY CHECKS. CONTINUE TO MONTIOR MOOD, HALLUCINATION AND DELUSIONS. PROVIDE ONE ON ONE NEEDED.
[2019-12-17 19:53] VITALS: BP 101/59
--- NOTE | 2019-12-17 22:09 | NUR ---
P-ISOLATIVE I-REDIRECTION WITH 1:1 THERAPEUTIC INTERVENTIONS AND PRESENT REALITY. EDUCATE AND ENCOURAGE MEDICATION COMPLIANCE R-PATIENT MEDICATION COMPLIANT WITH MOST MEDICATIONS AT HS. PATIENT PROVIDED NOURISHMENT AND FLUIDS AT HS. PATIENT ISOLATIVE IN ROOM THIS SHIFT. PATIENT WITH INTERACTION WITH PEER AND NURSING STAFF. PATIENT WITH NO HALLUCINATIONS OR DELUSIONS. PATIENT WITH NO HOMICIDAL OR SUICIDAL IDEATIONS. P-CONTINUE TO ENCOURAGE MEDICATION COMPLIANCE, CONTINUE TO PRESENT REALITY, ENCOURAGE GROUP THERAPY WHILE AWAKE
--- NOTE | 2019-12-18 06:27 | NUR ---
PATIENT SLEPT 7 HOURS OF INTERRUPTED SLEEP THROUGHOUT SHIFT. Q 15 MINUTE CHECKS MAINTAINE. 24 HR chart check completed.
[2019-12-18 07:57] VITALS: BP 110/68
--- NOTE | 2019-12-18 12:31 | NUR ---
NO ADVERSE MOODS OR BEHAVIORS NOTED. PT ALERT TO PERSON, PLACE AND TIME. PT MED COMPLIANT WITHOUT DIFFICULTY, MED EDUCATION PROVIDED. PT CALM, MOOD IS STABLE. PT PLEASANT, COOPERATIVE AND INTERACTIVE WITH STAFF. PT DENIES ANY SUICIDAL THOUGHTS. NO HALLUCINATIONS OR DELUSIONS NOTED. PT AMBULATORY THROUGHOUT UNIT, GAIT STEADY. PT CONTINENT OF BOWEL AND BLADDER. PT HAS SKIN TEAR TO RIGHT FOREARM, CONTINOUSLY REMOVES DRESSING. PLAN IS TO MONITOR PT BEHAVIORS ON Q15 MIN SAFETY CHECKS, ENCOURAGE MED COMPLIANCE AND PROVIDE MED EDUCATION, PROVIDE EMOTIONAL SUPPORT AND 1:1 FOR PT TO VOICE FEELINGS.
[2019-12-18 20:00] VITALS: BP 104/65
--- NOTE | 2019-12-18 21:39 | NUR ---
Patient alert and oriented to person,place and time. Mood calm,cooperative,slightly irritable at times and isolative to herself. Patient denies any SI/HI or hallucinations. No s/s of any responding to internal stimuli noted at this time. Patient non-compliant with HS medications. Provided 1:1 for emotional support. Plan to continue to encourage medication compliance and encourage patient to have more interaction with other patients. Also continue to offer emotional support when needed. Will continue to monitor moods/behaviors. Q 15 minute safety checks continued and maintained. See [facility] flowsheet for further documentation.
--- NOTE | 2019-12-19 05:26 | NUR ---
Patient slept approx. 5 hours throughout shift. Q 15 minute safety checks continued and maintained.
[2019-12-19 07:40] VITALS: BP 128/58
--- NOTE | 2019-12-19 08:30 | NUR ---
Treatment Plan meeting was held this a.m. with Dr Aguirre, BRADLEY Fuentes, RN, AT, SW and Manager Resource in attendance. Plan for discharge When Level of Care Returns.
--- NOTE | 2019-12-19 10:10 | NUR ---
Call placed to [facility] and Spoke with [employer] to inquire of delay of Receiving Significant Change PASRR results which is needed for Completion of Level of Care. Call received From Lindsay Paul RN at [facility] and Level of Care cannot be completed without the Letter of Approval for Significant Change.
--- NOTE | 2019-12-19 11:05 | NUR ---
[employer]MED[employer] RENAE WET SUIT GLUER ON UNIT TO ASSESS PT, UPDATE PROVIDED.
--- NOTE | 2019-12-19 11:47 | NUR ---
AM GROUP PT ATTENDED MORNING GROUP THERAPY AND PARTICIPATED BY SOCIALIZING WITH NURSING STUDENTS. PT EXHIBITED NO ADVERSE BEHAVIORS WHILE IN GROUP. PT IS ANXIOUS TO BE DISCHARGED FROM THE UNIT.
--- NOTE | 2019-12-19 14:39 | NUR ---
Spoke with Tita at [facility] Level 2 results have not returned from the [facility].
--- NOTE | 2019-12-19 14:46 | NUR ---
Spoke with Lenora from [facility]. Pt. Level 2 results cannot be completed due to Holiday today.
--- NOTE | 2019-12-19 15:39 | NUR ---
PM GROUP PT ATTENDED AFTERNOON GROUP THERAPY AND PARTICIPATED BY SOCIALIZING WITH STAFF AND LISTENING TO MUSIC. PT EXHIBITED NO ADVERSE BEHAVIORS WHILE IN GROUP. PT IS ANXIOUS TO BE DISCHARGED FROM THE UNIT AND SEE "BRISSA" AGAIN,
[2019-12-19 19:12] VITALS: BP 100/58; BP 90/45
--- NOTE | 2019-12-19 21:01 | NUR ---
ISOLATIVE TO ROOM. 1:1 COMPLETED. IN GOOD MOOD. REFUSED SNACK TONIGHT. MEDICATION EDUCATION PROVIDED AND COMPLIANT WITH MEDICATIONS. A&Oxs4. NO S/S OF RESPONDING TO INTERNAL STIMULI. WILL MONITOR FOR CHANGES IN MOOD/BEHAVIOR AND Q15 MINS AND PRN FOR SAFETY. EMOTIONAL SUPPORT PROVIDED.
--- NOTE | 2019-12-20 04:21 | NUR ---
24 HR chart check completed.
--- NOTE | 2019-12-20 04:22 | NUR ---
UP IN DININGROOM TO GET DRINK. TAKING TIME LOOKING AT PICTURES. NO C/O
--- NOTE | 2019-12-20 05:52 | NUR ---
BROKEN 8 HOURS SLEPT. SLEPT WELL TILL 4AM THEN UP AND DOWN. WILL PASS ON TO MEDICAL ABOUT CHANGING LASIX TIMES
[2019-12-20 08:01] VITALS: BP 116/60
--- NOTE | 2019-12-20 09:00 | NUR ---
Treatment Plan meeting was held this a.m. with BRADLEY Fuentes, RN, AT, SW and Point Of Care Technician in attendance. Plan for discharge today if Sig Change PASRR with approval letter is received from [facility] and Level of Care can be completed.
--- NOTE | 2019-12-20 10:48 | NUR ---
Received Call from Tita at [facility] that Letter of Approval had been received. Tita Faxed to [facility] manager oracle. Forwarded to [facility] to Complete the Level of Care for Pt. to enter Nursing Facility. Spoke with Axel Leon at [facility] and Advised that Level of Care is Needed As Soon as Possible to discharge Patient today. Transportation arranged with [facility] to Transport with supervisor grove time 3:00 p.m.
--- NOTE | 2019-12-20 11:15 | NUR ---
PT ALERT TO PERSON, PLACE, TIME AND SITUATION. PT MED COMPLIANT WITHOUT DIFFICULTY, MED EDUCATION PROVIDED. PT CALM, MOOD IS STABLE. PT PLEASANT AND COOPERATIVE WITH STAFF AND PEERS. NO HALLUCINATIONS OR DELUSIONS NOTED. PT DENIES ANY SUICIDAL THOUGHTS. PT AMBULATORY THROUGHOUT UNIT, GAIT STEADY. PT CONTINENT OF BOWEL AND BLADDER. PT HAS SKIN TEAR TO RIGHT FOREARM, REFUSES DRESSING AND FULL SKIN ASSESSMENT. PT REFUSED WOUND DC PHOTOS. PLAN IS TO MONITOR PT BEHAVIORS ON Q15 MIN SAFETY CHECKS, ENCOURAGE MED COMPLIANCE AND PROVIDE MED EDUCATION, ENCOURAGE GROUP PARTICIPATION AND SOCIALIZATION, PROVIDE EMOTIONAL SUPPORT AND 1:1 FOR PT TO VOICE FEELINGS, PREPARE FOR DISCHARGE TO [facility] TODAY.
--- NOTE | 2019-12-20 11:46 | NUR ---
AM GROUP PT ATTENDED MORNING GROUP THERAPY AND PARTICIPATED BY LISTENING TO MUSIC AND SOCIALIZING WITH STAFF. PT EXHIBITED NO ADVERSE BEHAVIORS WHILE IN GROUP.
--- NOTE | 2019-12-20 12:22 | NUR ---
NURSE TO NURSE REPORT GIVEN TO MARIJA AT [facility]. ADVISED THAT PT IS SCHEDULED FOR [facility]X DESIGN LEAD AT 3PM VIA [facility].
--- NOTE | 2019-12-20 14:56 | NUR ---
Discharge Paperwork and Level of Care faxed to [facility] Attn: Tita [phone].
--- NOTE | 2019-12-20 15:39 | NUR ---
PM GROUP/MOVIE PT ATTENDED AFTERNOON GROUP THERAPY AND PARTICIPATED BY WATCHING THE MOVIE AND SOCIALIZING WITH THIS DISTILLERY SUPERVISOR. PT IS AWAITING HER RIDE TO BE DISCHARGED FROM THE UNIT.
--- NOTE | 2019-12-20 15:54 | NUR ---
PT DISCHARGED TO [facility]IA [facility]. PT BELONGINGS AND DC PACKET SENT WITH PT.
== END 2019-12-20 15:55 | disposition other institution (70) | DRG 885 ==
LOC: 3N 16:36
PROVIDERS: ADMIT Psychiatry & Neurology Psychiatry; ATTEND Psychiatry & Neurology Psychiatry
DX: F25.9 Schizoaffective disorder, unspecified (principal); F41.9 Anxiety disorder, unspecified; F32.9 Major depressive disorder, single episode, unspecified; E66.3 Overweight; I50.9 Heart failure, unspecified; E03.9 Hypothyroidism, unspecified; K21.9 Gastro-esophageal reflux disease without esophagitis; K59.00 Constipation, unspecified; G89.29 Other chronic pain; E11.9 Type 2 diabetes mellitus without complications; M19.91 Primary osteoarthritis, unspecified site; J45.909 Unspecified asthma, uncomplicated; G47.00 Insomnia, unspecified; K64.9 Unspecified hemorrhoids; J45.20 Mild intermittent asthma, uncomplicated; S51.811A Laceration without foreign body of right forearm, initial encounter; F03.90 Unspecified dementia, unspecified severity, without behavioral disturbance, psychotic disturbance, mood disturbance, and anxiety; J44.9 Chronic obstructive pulmonary disease, unspecified; Z20.828 Contact with and (suspected) exposure to other viral communicable diseases; Z86.718 Personal history of other venous thrombosis and embolism; Z88.0 Allergy status to penicillin; Z88.2 Allergy status to sulfonamides; Z88.8 Allergy status to other drugs, medicaments and biological substances; Z88.6 Allergy status to analgesic agent; Z91.041 Radiographic dye allergy status; X58.XXXA Exposure to other specified factors, initial encounter; Y93.89 Activity, other specified; Y92.89 Other specified places as the place of occurrence of the external cause; Y99.8 Other external cause status; Z68.25 Body mass index [BMI] 25.0-25.9, adult

== ENCOUNTER 2020-01-11 14:51 | Inpatient (IN) | payer MEDICARE, MEDICAID ==
[~2020-01-11] VITALS: Ht 165.1 cm; Wt 69.4 kg
[~2020-01-11 14:51] MED LIST changes: +CAPLYTA42 MG PO; +CARTIA XT180 MG PO; +CLARITIN10 MG PO; +INVEGA9 MG PO; +LITHIUM CARBON300 MG PO; +MAALOX ADVANCE355 M1 PO; +MEMANTINE HCL10 MG PO; +MILK OF MA400 MG/5 M PO; +PROCTOSOL-HC28.35 GM R; +REMERON15 M2 PO; +RIVASTIGMINE1 EAC2 T; +SENOKOT-S TABL1 EACH PO; +TYLENOL325 M1 PO; +TYLENOL325 M2 PO; +XARELTO10 MG PO
[2020-01-11] MEDS ORDERED: VISTARIL50 MG PO (15:34)
[2020-01-11] MEDS ORDERED: INVEGA6 MG PO (15:36)
--- NOTE | 2020-01-11 17:09 | NUR ---
MIKAYLA CHERY a 69 year old F admitted via wheel chair from [facility] as a voluntary BY GUARDIAN admission. Arrived on unit at 1709 . ALLERGIES: SEE CHART . Vital signs are: [id number] 130/5 VERBAL CONSENT FROM GUARDIAN FOR the following forms with stated understanding: Authorization For The Release of Medical Information, Clothing List, Consent to Voluntary Admission and Hospitalization, Consent and Release Forms/Receipt of Rights, Acknowledgement of Advance Directive Information, Behavioral Health Consent Form, and Informed Consent of Medications. Admitted under the services of Dr. REAGAN SIERRA,[facility]. A search was conducted and hazardous articles were removed. Client was oriented to the unit. JORGE LARA PT ALERT TO PERSON, PLACE AND TIME, INTERMITTENT CONFUSION NOTED. PT MANIC WITH FLIGHT OF IDEAS, PRESSURED SPEECH. PT RESTLESS AT TIMES. PT RIGHT LEG/ANKLE SWOLLEN WITH +1 - +2 PITTING EDEMA, PT VOICES PAIN WHEN TOUCHED. PT ALSO C/O STOMACH PAIN, DR UPDATED WHEN CALLED FOR MEDICAL CONSULT. PT AMBULATORY THROUHGOUT, GAIT OCCASIONALLY UNSTEADY. PT CONTINENT OF BOWEL AND BLADDER, EPISODES OF INCONTINENCE NOTED, CARE PROVIDED NEEDED. PT HAS 2 SCABS TO RIGHT FOREARM, BRUISING TO BILATERAL INNER THIGHS AND RIGHT OTHER THIGH.
[2020-01-11 17:15] VITALS: BP 130/59
[2020-01-11 17:35] VITALS: BP 130/59
--- NOTE | 2020-01-11 17:50 | NUR ---
DR. IBANEZ NOTIFIED OF NEW ADMISSION, MEDICATIONS AND DIAGNOSIS LIST UPDATED FOR REVIEW. DR. IBANEZ INFORMED OF PATIENT HAVING EDEMA TO RIGHT LOWER EXTREMITY AND COMPLAINTS OF STOMACH PAIN.
--- NOTE | 2020-01-11 18:32 | NUR ---
SPOKE WITH RADIOLOGY, WHO STATED THAT PT STAT ULTRSOUND WOULD BE DONE 01/12/20 DURING [address] HOURS. NOTIFIED DR IBANEZ AT [phone] RE: ULTRASOUND BEING DONE TOMORROW DURING DAYLIGHT HOURS, NO FURTHER ORDERS AT THIS TIME.
[2020-01-11 19:24] LABS: BILIRUBIN Negative (Negative); BLOOD Trace-Lysed (Negative); CLARITY Clear (Clear); COLOR Yellow (Yellow); GLUCOSE Negative (Negative); KETONE Negative (Negative); LEUKO ESTERASE 3+ (Negative); NITRITE Negative (Negative); PH 6.5 (4.5-8.0); UROBILINOGEN 0.2 E.U./dl (0.0-1.0)
[2020-01-11 19:32] LABS: BACTERIA 2+; EPITHELIAL CELLS 41-50; WBC 21-30 wbc/hpf (0-5)
--- NOTE | 2020-01-11 19:58 | NUR ---
NOTIFIED DR. MABRY OF URINALYSIS RESULTS. DR. MABRY WILL REVIEW.
[2020-01-11 20:00] VITALS: BP 130/59
--- NOTE | 2020-01-11 20:33 | NUR ---
NOTED +1 PITTING EDEMA TO RIGHT LOWER LEG, NO REDNESS OR WARMTH NOTED. NO C/O PAIN AT THIS TIME. STAT ULTRASOUND ORDERED AND WILL BE COMPLETED 01/12/20, DR. IBANEZ AWARE. MEDICATION COMPLIANT. AWAKE IN BED AT THIS TIME.
--- NOTE | 2020-01-11 21:15 | NUR ---
PT HAD MODERATE EMESIS X1 T-97.5. C/O INTERMITTENT NAUSEA. DR. MABRY NOTIFIED WILL REVIEW ORDERS.
--- NOTE | 2020-01-11 21:53 | NUR ---
NOTIFIED DR. MABRY EKG RESULTS ARE AVAILABLE TO REVIEW, WAITING FOR FURTHER ORDERS.
--- NOTE | 2020-01-11 22:23 | NUR ---
PRN ZOFRAN 4MG SL GIVEN FOR C/O NAUSEA.
--- NOTE | 2020-01-11 23:23 | NUR ---
PRN ZOFRAN EFFECTIVE. PT RESTING IN BED AT THIS TIME. NO FURTHER C/O NAUSEA AND NO FURTHER EMESIS.
--- NOTE | 2020-01-12 00:37 | NUR ---
PT AMBULATING IN HALLWAY, C/O 09/15 BILATERAL KNEE PAIN, REQUEST PRN NAPROXEN 220 MG PO GIVEN AT THIS TIME. ASSISTED TO TOILET AND BACK TO BED.
--- NOTE | 2020-01-12 01:17 | NUR ---
P-PREOCCUPIED WITH WHERE SHE LIVES, OTHER RESIDENTS AND HER STUFFED ANIMALS. I-ASSESSED ORIENTATION, MOOD. SI/HI, AND HALLUCINATIONS. PROVIDED REDIRECTION, AND 1:1 EMOTIONAL SUPPORT. ADMINISTERED MEDICATIONS PER PHYSICIANS ORDERS AND MEDICATION EDUCATION PROVIDED. R-PT ALERT TO SELF, PLACE AND SITUATION, CONFUSION NOTED. MOOD STABLE. DENIES SI/HI, AND HALLUCINATIONS. ACCEPTED REDIRECTION AND 1:1. MEDICATION COMPLIANT. P-WILL CONTINUE TO MONITOR MOOD, SI/HI AND HALLUCINATIONS. Q 15 MIN CHECKS MAINTAINED AND PRN.
--- NOTE | 2020-01-12 01:37 | NUR ---
PRN NAPROXEN EFFECTIVE. NO FURTHER C/O PAIN. ASLEEP IN BED AT THIS TIME.
--- NOTE | 2020-01-12 02:30 | NUR ---
WOUND CARE NURSE IN TO ASSESS PT, PT BECAME IRRITABLE AND REFUSED REMAINDER OF ASSESSMENT.
--- NOTE | 2020-01-12 05:54 | NUR ---
PT SLEPT APPROX 6 HOURS WITH INTERRUPTIONS. RESTING IN BED AT THS TIME.
--- NOTE | 2020-01-12 06:20 | NUR ---
NOTIFIED DR. MABRY PTS RIGHT LOWER LEG REMAINS +1-2 PITTING EDEMA, REDNESS AND WARMTH NOTED THIS AM. PER DR. MABRY CONTINUE TO ENCOURAGE ELEVATION OF LEG AND WAIT FOR STAT ULTRASOUND TO BE COMPLETED FOR FURTHER ORDERS.
[2020-01-12 06:27] LABS: BASO % 0.6 % (0.0-1.0); EOS # 0.3 10*3/uL (0.0-0.4); EOS % 4.1 % (1.0-4.0); HEMATOCRIT 27.7 % (37.0-47.0); LYMPH # 1.3 10*3/uL (1.3-4.4); MEAN CELL VOLUME 95.8 fl (81.0-99.0); MEAN CORPUSCULAR HGB 29.8 pg (27.0-31.0); MEAN PLATELET VOLUME 12.1 fl (9.6-12.3); MONO # 0.5 10*3/uL (0.1-1.0); MONO % 7.3 % (3.0-9.0); NEUT # 4.3 10*3/uL (2.3-7.9); NEUT % 67.7 % (47.0-73.0); PLATELET COUNT AUTOMATED 186 10*3/uL (130-400); RED BLOOD COUNT 2.89 10*6/uL (4.10-5.10); RED CELL DISTRI WIDTH 15.1 % (0-14.5); WHITE BLOOD COUNT 6.3 10*3/uL (4.8-10.8)
[2020-01-12 06:42] LABS: ALBUMIN 2.8 gm/dl (3.1-4.5); BUN 14 mg/dl (7-24); CHLORIDE 106 mmol/L (98-107); CHOLESTEROL 156 mg/dL (<200); CREATININE 0.99 mg/dL (0.55-1.02); SGOT/AST 10 IU/L (3-35); SGPT/ALT 10 U/L (12-78); SODIUM 142 mmol/L (136-145); TRIGLYCERIDES 84 mg/dl (<150); VLDL CHOLESTEROL 17 mg/dL (6-40)
[2020-01-12 06:51] LABS: ALKALINE PHOSPHATASE 83 U/L (45-117); HDL CHOLESTEROL 63 mg/dl (40-60); LDL CHOLESTEROL 76 mg/dL (9-159); TOTAL PROTEIN 5.9 gm/dL (6.4-8.2)
[2020-01-12 07:18] VITALS: BP 108/55
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
[2020-01-12 08:48] LABS: VITAMIN D, 25-HYDROXY 48.7 ng/mL (30-100)
--- NOTE | 2020-01-12 09:00 | NUR ---
Treatment Plan meeting was held this a.m. with Dr. Aguirre RN, VP BUSINESS DEVELOPMENT-S and Sunday [employer] Missionary in attendance. Plan for discharge Next Week. Pt. came to [facility]. Will reach out to Facility today to discuss discharge Planning.
--- NOTE | 2020-01-12 09:05 | NUR ---
2ND RN NOTIFIFED THAT THIS PT WAS IN DINING ROOM SPEAKING ILL OF PEER, RN ADVISED PT THAT THIS IS NOT APPROPRIATE FOR HER TO SPEAK IN THIS MANNER AND REMINDED PT TO STAY AWAY FROM PEER. RN TURNED AROUND AND THIS PT WAS SITTING DIRECTLY IN FRONT OF PEER. DR REAGAN MCKENZIE AWARE OF PT BEHAVIORS.
--- NOTE | 2020-01-12 09:36 | NUR ---
PT OFF UNIT TO ULTRSOUND.
--- NOTE | 2020-01-12 10:02 | NUR ---
PT RETURNED FROM ULTRASOUND
--- NOTE | 2020-01-12 10:32 | NUR ---
Spoke to Damari grinder hand of pt's guardian Radha Dorsey and informed her that [facility] had informed our nurse that [facility] is being pursued for pt upon U discharge. Requested confirmation that Radha Dorsey agrees with this. Damari confirmed that Radha Dorsey is agreeable to the move.
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
--- NOTE | 2020-01-12 12:09 | NUR ---
pt c/o all over pain, refusing to rate on scale. pt medicated with prn po naproxen. calos continue to monitor.
--- NOTE | 2020-01-12 12:47 | NUR ---
PT IN DINING ROOM SPEAKING WITH NURSING STUDENTS, PT BEGINS TO YELL AND CURSE AT NURSE, STATING "YOU FUCKING BITCH, GO TO HELL, I HOPE YOU BURN IN HELL, I'LL HAVE YOUR JOB, GE THE HELL OUT OF HERE, IF YOU TOUCH ME I'LL SEND YOU TO CARE HOME." NURSE ADVSIED PT THAT HER LANGUAGE WILL NOT BE TOLERATED IN THE DINING ROOM AND IF IT CONTINUES PT WILL HAVE TO GO INTO ANOTHER ROOM TO CALM. PT CONTINUES TO YELL OUT AND CURSE, PT REDIRECTED TO HER ROOM TO CALM. PT CONTINUES TO YELL OUT AND CURSE AND SLAMS THE DOOR TO HER ROOM. WILL CONTINUE TO MONITOR PT BEHAVIORS.
--- NOTE | 2020-01-12 12:56 | NUR ---
SPOKE WITH DR GHOSH AT [phone] RE: PT ULTRASOUND RESULTS. NO FURTHER ORDERS AT THIS TIME
--- NOTE | 2020-01-12 14:21 | NUR ---
P: PT MANIC WITH PRESSURED SPEECH. PT MOOD IS LABILE, IRRITABLE WITH STAFF, YELLING OUT AND CURSING. PT CAN BE INTRUSIVE/DISRUPTIVE TO OTHERS. PT TEARFUL AT TIMES. PT RESISITIVE WITH AM PO MEDS. I: PROVIDE EMOTONAL SUPPORT AND 1:1 FOR PT TO VOICE FEELLINGS, ENCOURAGE MED COMPLIANCE AND PROVIDE MED EDUCATION, PROVIDE LOW STIMULATION ENVIRONMENT FOR PT TO CALM R: PT ALERT TO PERSON, PLACE, AND TIME. PT MED COMPLIANT WITH MINIMAL DIFFICULTY. PT CONTINUES TO BE IRRITABLE, LABILE AND INTRUSIVE/DISRUPTIVE. NO HALLUCINATIONS OR DELUSIONS NOTE. PT DENIES ANY SUICIDAL THOUGHTS. PT AMBULATORY THROUGHOUT UNIT, GAIT STEADY. PT CONTINENT OF BOWEL AND BLADDER. PT OBSERVED TO BE PICKING AT SKIN ON LEGS, CAUSING RED OSEGUERA. P: MONITOR PT BEHAVIORS ON Q15 MIN SAFETY CHECKS, ENCOURAGE MED COMPLIANCE AND PROVIDE MED EDUCATION, PROVIDE EMOTIONAL SUPPORT AND 1:1 FOR PT TO VOICE FEELINGS, PROVIDE LOW STIMULATION ENVIRONMENT FOR PT TO CALM.
--- NOTE | 2020-01-12 16:15 | NUR ---
PT IN HALLWAY SPEAKING WITH STAFF MEMEBER AND BEGINS CURSING, THIS NURSE ADVSIED PT THAT THIS LANGUAGE WILL NOT BE TOLERATED. PT RETURNS TO HER ROOM AND SLAMS THE DOOR. NURSE ADVISED PT THAT HER DOOR MUST REMAIN CRACKED FOR MONITORING PURPOSES.
--- NOTE | 2020-01-12 16:45 | NUR ---
2ND RN IN DINING ROOM, WHEN PT ENTERED AND ATTEMPTED TO SIT NEXT TO FEMALE PEER. RN ASKED PT TO SIT AT A DIFFERENT TABLE DUE TO HER THREATENING BEHAVIOR TOWARD PEER. PT REFUSED STATED "GO AHEAD AND GET SECURITY UP HERE.", PT CURSING AT NURSE. THIS RN ENTERED DINING ROOM AND ATTEMPED TO HAVE PT SIT AT ANOTHER TABLE AND PT REFUSED CONTINUING TO CURSE AT STAFF, SECURITY ON UNIT TO ASSIST. PT RETURNED TO HER ROOM CONTINUING TO CURSE AND CALL STAFF VULGAR NAMES, AND THREATENING STAFF. PT MEDICATED WITH GEODON IM PRN PER ORDERS. PT CONTINUED TO YELL OUT DURING INJECTION. PT STRIPPED BED PRIOR TO INCIDENT, THIS RN OFFERED TO REMAKE PT BED, PT REFUSED STATING, "I'M GETTING THE HELL OUT OF HERE, GET THE HELL OUT OF HERE, YOU STUPID, WHOOWEN DAVIS LEAVE ME ALONE." PT LEFT IN ROOM TO NEAL, WILL CONTINUE TO MONITOR PT BEHAVIORS.
[2020-01-12 20:00] VITALS: BP 111/66
--- NOTE | 2020-01-12 20:42 | NUR ---
PT HAD ONE SMALL EMESIS, C/O NAUSEA. PRN ZOFRAN 4MG SL GIVEN. NOTIFIED LEROY ARMENTAO.
--- NOTE | 2020-01-12 21:42 | NUR ---
PRN ZOFRAN SL EFFECTIVE. NO FURTHER EMESIS OR C/O NAUSEA.
--- NOTE | 2020-01-12 22:18 | NUR ---
C/O JAS LOWER LEG PAIN, +1 EDEMA TO RIGHT LOWER LEG REMAINS, ENCOURAGED TO ELEVATE. PRN TYLENOL 650 MG GIVEN FOR C/O 4/10 PAIN.
--- NOTE | 2020-01-12 23:18 | NUR ---
PRN TYLENOL EFFECTIVE, PAIN 0/10, NO FURTHER COMPLAINTS VOICED.
--- NOTE | 2020-01-13 01:22 | NUR ---
P-MANIC. LABILE, IRRITABLE. DEMANDING I-PROVIDED 1:1 EMOTIONAL SUPPORT ENCOURAGED TO DISCUSS FEELINGS. ASSESED MOOD, BEHAVIORS, HALLUCINATIONS, DELUSIONS AND/OR PARANOIA. ADMINISTERED MEDICATIONS PRESCRIBED AND PROVIDED EDUCATION. R-PT DISCUSSED FEELING. MOOD LABILE, IRRITABLE AT TIMES WITH STAFF. DEMANDING OF STAFF. DENIES HALLUCINATIONS, DELUSIONS AND/OR PARANOIA. DENIES SI/HI. MEDICATION COMPLIANT. PT REPORTS SHE IS READY TO GO HOME. PT DID NOT HAVE ANY THREATENING BEHAVIOR TOWARDS PEERS THIS SHIFT. P-WILL CONTINUE TO MONITOR MOODS, BEHAVIORS AND SI/HI. Q 15 MIN CHECKS MAINTAINED.
--- NOTE | 2020-01-13 04:00 | NUR ---
PRN TYLENOL 650MG PO GIVEN FOR C/O 3/10 PAIN IN BLE, +1 EDEMA TO RLE REMAINS. PT ENCOURAGED TO ELEVATE LEG.
--- NOTE | 2020-01-13 05:00 | NUR ---
PRN TYLENOL EFFECTIVE, NO FURTHER C/O PAIN.
--- NOTE | 2020-01-13 06:11 | NUR ---
PT SLEPT 3 HOURS INTERRUPTED. 24 HR chart check completed.
[2020-01-13 07:42] VITALS: BP 117/67
--- NOTE | 2020-01-13 09:00 | NUR ---
Treatment Plan meeting was held this a.m. with Dr. Aguirre via telephone, TOOL MAINTENANCE WORKER Gnia, RN, AT, MANAGER DOMESTIC-S and Machine Bender in attendance. Plan for discharge Next Week. Pt. will return to [facility] if not accepted at [facility].
--- NOTE | 2020-01-13 09:34 | NUR ---
SPOKE TO DR IBANEZ ABOUT PATIENTS +2 EDEMA AND PAIN TO RIGHT LOWER EXTREMITY. NEW ORDER FOR JUSTO KEY.
--- NOTE | 2020-01-13 09:55 | NUR ---
PATIENT REFUSED TO WEAR JUSTO HOSE AFTER MUCH ENCOURAGEMENT. WILL CONTINUE TO MONITOR.
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
--- NOTE | 2020-01-13 11:59 | NUR ---
Observed pt being intrusive toward another female pt this AM. This chief underwriter intervened by requesting pt to leave the room and go to the activity room. While walking with pt toward the door, pt stopped and began talking about giving her stuffed animals away and about a man who because he wouldn't hold her one stuffed animal. Pt then smiled and said, "I did something good with that one."
--- NOTE | 2020-01-13 14:48 | NUR ---
Clinical Updates faxed to [facility] and [place].
--- NOTE | 2020-01-13 17:40 | NUR ---
DR IBANEZ ON UNIT TO ASSESS PATIENT, NEW ORDERS RECEIVED. WILL CONTINUE TO MONITOR.
[2020-01-13 19:28] VITALS: BP 113/54
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
--- NOTE | 2020-01-14 01:52 | NUR ---
PATIENT HALLUCINATING AT THIS TIME. PATIENT STATING THAT SHE IS TALKING TO HER EX . PATIENT CONTINUES TO MAKE ANIMAL NOISES. PATIENT BARKING LIKE A DOG AND MEOWING LIKE A CAT. PATIENT ASSISTED WITH REPOSITIONING IN BED AND ENCOURAGED TO ELEVATE BILATERAL LOWER EXTREMITIES. PATIENT IN ROOM HAVING TEARFUL EPISODES AND TALKING TO UNSEEN OTHERS. PATIENT USING VULGAR LANGUAGE. PATIENT CONTINUES TO USES CALL LIGHT FREQUENTLY. NURSING STAFF IN PATIENT ROOM THROUGHOUT SHIFT TO ADDRESS PATIENTS NEEDS. PATIENT NOT MAKING NEEDS KNOWN BUT CONTINUES WITH RACING THOUGHTS. PATIENT REQUESTED NAPROXEN FOR GENERALIZED BODY PAIN. NAPROXEN WITH EFFECTIVE RESULTS AT THIS TIME.
--- NOTE | 2020-01-14 06:19 | NUR ---
PATIENT DID NOT SLEEP THROUGHOUT SHIFT. PATIENT UP ALL NIGHT. Q 15 MINUTE CHECKS MAINTAINED. 24 HR chart check completed.
[2020-01-14 06:33] LABS: BASO % 0.5 % (0.0-1.0); EOS # 0.2 10*3/uL (0.0-0.4); EOS % 2.8 % (1.0-4.0); HEMATOCRIT 29.7 % (37.0-47.0); LYMPH # 1.1 10*3/uL (1.3-4.4); LYMPH % 14.9 % (27.0-41.0); MEAN CELL VOLUME 95.2 fl (81.0-99.0); MEAN CORPUSCULAR HGB 28.8 pg (27.0-31.0); MEAN CORPUSCULAR HGB CONC 30.3 g/dl (33.0-37.0); MEAN PLATELET VOLUME 12.3 fl (9.6-12.3); MONO # 0.5 10*3/uL (0.1-1.0); MONO % 6.8 % (3.0-9.0); NEUT # 5.6 10*3/uL (2.3-7.9); NEUT % 74.6 % (47.0-73.0); PLATELET COUNT AUTOMATED 201 10*3/uL (130-400); RED BLOOD COUNT 3.12 10*6/uL (4.10-5.10); RED CELL DISTRI WIDTH 15.4 % (0-14.5); WHITE BLOOD COUNT 7.5 10*3/uL (4.8-10.8)
[2020-01-14 06:48] LABS: ALBUMIN 3.5 gm/dl (3.1-4.5); ALKALINE PHOSPHATASE 99 U/L (45-117); BUN 14 mg/dl (7-24); CHLORIDE 105 mmol/L (98-107); CREATININE 0.99 mg/dL (0.55-1.02); POTASSIUM 3.9 mmol/L (3.5-5.1); SGOT/AST 14 IU/L (3-35); SGPT/ALT 14 U/L (12-78); SODIUM 141 mmol/L (136-145); TOTAL PROTEIN 6.6 gm/dL (6.4-8.2)
[2020-01-14 07:52] VITALS: BP 126/56
--- NOTE | 2020-01-14 08:57 | NUR ---
P: SEXUALLY PREOCCUPIED, SECURITY ON UNIT, PATIENT EYEING SECURITY GUARDING UP AND DOWN, STATING "WOW" TALKING TO NURSE DURING MORNING MEDICATIONS STATING "GORGEOUS, WANT TO SIT DOWN BESIDE ME" AND ASKED APPLICATION SECURITY ENGINEER TO "DO YOU WANT TO SIT ON MY LAP" PATIENT BECOMING IRRITABLE, DEMANDING, CONSTANTLY IT SENIOR ANALYST LIGHT FOR MULTIPLE REQUEST. HAVING VISUAL HALLUCINATING STATING "WHY THE HELL DID YOU DO THAT, GET OUT OF HERE" THEN MAKING CAT AND DOG SOUNDS. I: ONE ON ONE FOR EMOTIONAL SUPPORT, PROVIDED MEDICATION EDUCATION AND REDIRECTION FOR INAPPROPRIATE TALK AND GESTURES. REDIRECTED MULTIPLE TIME AND SPACE PROVIDED R: EFFECTIVE. PATIENT IS ALERT AND ORIENTED TO PERSON, PLACE, TIME AND SITUATION; ABLE TO VOICE NEEDS. MOOD IS LABILE. DENIES HALLUCINATIONS, DELUSIONS, HI/SI. MEDICATION COMPLAINT WITH ENCOURAGEMENT. EDUCATION PROVIDED. Q 15 MINUTE SAFETY CHECKS MAINTAINED. 1 PERSON ASSIST WITH ACTIVITIES OF DAILY NEEDED. CONTINENT OF BOWEL AND BLADDER. SET UP FOR MEALS, INTAKES ARE GOOD WITH ADEQUATE FLUIDS. AMBULATORY WITH STEADY GAIT. P: CONTINUE TO MONITOR FOR HALLUCINATIONS, DELUSIONS, VERBAL THREATS TOWARDS OTHERS. PROVIDE ONE ON ONE FOR EMOTIONAL SUPPORT, REDIRECTION/ORIENTATION, PROVIDE SPACE NEEDED.
--- NOTE | 2020-01-14 09:43 | NUR ---
DR. TAMAYO ON UNIT TO ASSESS PATIENT.
--- NOTE | 2020-01-14 09:55 | NUR ---
PATIENT IN BATHROOM, USED CALL LIGHT FOR NURSE ASSISTANCE. PATIENT HAS HEMRROIDS PRESENT. CALMOSEPTINE CREAM APPLIED PER REQUEST. PATIENT ENCOURAGED TO REST AT THIS TIME.
--- NOTE | 2020-01-14 11:30 | NUR ---
INJECTION MOLD TOOLING TECHNICIAN NOTIFIED THIS RN PT WAS COMPLAINING OF HER "HEART HURTING". THIS RN APPROACHES PT IMMEDIATELY THEREAFTER TO ASSESS, PT IS ENGAGED IN CONVERSATION WITH OTHER NURSING STUDENTS AND APPEARS IN NO DISTRESS. PT SEES THIS RN SHE PUTS HER HAND TO LEFT SIDE OF CHEST AND C/O OF CHEST PAIN, STATES "I HAVE TO LAY DOWN". PT STATES PAIN IS 10/10 PAIN SCALE AND PT STATES "IT GOES TO MY ARM". VITALS STABLE: 97.3-83-20-132/64- 98% ROOM AIR. RESPS EASY AND EVEN ON ROOM AIR. PT BEGINS PLAYING CARD GAME WITH NURSING STUDENTS AND STATES "I JUST NEED MY SEROQUEL 400MG AT BEDTIME". NOTIFIED OF ABOVE. NO ORDERS RECIEVED, STATES HE WILL REVIEW.
--- NOTE | 2020-01-14 12:45 | NUR ---
PT RANG BATHROOM CALL LIGHT. THIS RN TO BATHROOM TO ASSIST. PT STATES "I DON'T NEED ANYTHING. I JUST WANTED TO TELL YOU I HAVE $500,000 IN A TRUST FUND AT [place]. JAJA TAKES $50 EVERY MONTH TO DO MY SHOPPING. SHE'S THE WET CHEMISTRY ANALYST'S DAUGHTER. SHE BOUGHT ME A BEAUTIFUL NABIL BASKET AND YARN FROM [employer]. I MADE 8 BLANKETS FOR ALL THE STAFF. I'LL MAKE ONE FOR THAT OLD LADY OUT THERE. SHE'S ALWAYS COLD AND SHE'S SO OLD".
--- NOTE | 2020-01-14 13:14 | NUR ---
ON UNIT TO SEE PT AT THIS TIME. OF THIS TIME PT HAS NOT HAD ANY FURTHER COMPLAINTS OF CHEST PAIN, PT STATES "IT WENT AWAY". NO DISTRESS NOTED. STATES HE WILL ENTER NEW ORDERS FOR EKG AND TROPONIN D/T PT'S HISTORY.
--- NOTE | 2020-01-14 13:28 | NUR ---
EKG COMPLETED AT THIS TIME. PT ALERT, TALKATIVE, RESPS EASY AND EVEN ON ROOM AIR. WANTS TO GO TO DINING ROOM TO PLAY SCRABBLE WITH NURSING STUDENTS.
--- NOTE | 2020-01-14 13:37 | NUR ---
NOTIFIED OF EKG RESULT.
--- NOTE | 2020-01-14 14:18 | NUR ---
PT HAS CONTINUED TO EXHIBIT LABILE MOODS AND BEHAVIORS THROUGHOUT THE SHIFT. PT'S MOOD VERY QUICKLY CHANGES FROM CALM, COOPERATIVE AND PLEASANT TO ANGRY AND IRRITABLE, YELLING AT TIMES WITH VULGAR LANGUAGE. EPISODES OF CRYING, LOUD SOBBING. PT INTRUSIVE WITH STAFF, NONCOMPLIANT WITH CARE AT TIMES, PT BECOMES EASILY AGITATED UPON ANY ATTEMPTS TO REDIRECT OR SET LIMITS.
--- NOTE | 2020-01-14 15:07 | NUR ---
Shift chart check completed.
--- NOTE | 2020-01-14 15:14 | NUR ---
Pt with multiple and frequent complaints asking for different medications and treatments continually throughout the shift. Any attempt to reorient, redirect or limit set with pt is met with increasing levels of agitation from pt. At this time pt is requesting DuoNeb. No respiratory distress noted. Pt folding clothes in her room. POX 95% room air. Call placed to respiratory and made aware of pt's request.
--- NOTE | 2020-01-14 18:30 | NUR ---
PT CONTINUES TO RING CALL ELLIS OFTEN DEMANDING STAFF COMPLETE SMALL TASKS FOR HER SUCH MOVING BLANKETS, OBTAINING ADDITIONAL TOILETRIES AND OTHER ITEMS SHE ALREADY HAS SEVERAL OF. UPON THIS RN'S ATTEMPTS TO REDIRECT, PT YELLS "GET THE FUCK OUT OF HERE AND GO SHAVE YOUR BALLS".
--- NOTE | 2020-01-14 20:00 | NUR ---
STRIPPED BED SAYING IT WAS DIRTY. TALKING RUDLY ABOUT STAFF. REFUSING TO FOLLOW REQUSTS. DIFFICULTY TO REDIRECT. INTRUSIVE WITH PEERS.
[2020-01-14 20:23] VITALS: BP 130/75
--- NOTE | 2020-01-14 21:13 | NUR ---
PRN ALEVE 220MG PO GIVEN AT THIS TIME PER PT REQUEST FOR C/O BILATERAL LEG PAIN, PT REFUSED TO RATE ON PAIN SCALE. WILL MONITOR FOR EFFECT.
--- NOTE | 2020-01-14 21:33 | NUR ---
RESPIRATORY NOTIFIED CLIENT REQUESTING TREATMENT
--- NOTE | 2020-01-14 22:11 | NUR ---
RESPIRATORY TX COMPLETED. CLIENT REMAINS PUSHING CALL ELLIS. CUSSING STAFF OUT IF SHE DOESN'T GET ANSWER SHE WANTS. WILL CONTINUE TO MONITOR
--- NOTE | 2020-01-14 22:22 | NUR ---
C/O BLEEDING HEMORRIDS AND BURNING. ANUSOL INSERTED PER ORDERS. SCANT BRIGHT RED BLEEDING NOTED. WILL MONITOR
--- NOTE | 2020-01-15 01:21 | NUR ---
24 HR chart check completed.
--- NOTE | 2020-01-15 01:34 | NUR ---
UP IN BATHROOM SCREAMING AT STAFF. CURSING THEM OUT AND CALLING THEM FOUL NAMES. HAS BEEN UP MOST THE NIGHT. SITTING IN BATHROOM AND CONTINUOUSLY FLUSHING TOILET. CONSTANTLY IRRITATING HEMMOROIDS WITH TOILET PAPER. REFUSES TO BE REDIRECTED
--- NOTE | 2020-01-15 02:26 | NUR ---
IN AND OUT OF ROOM. DIFFICULTY REDIRECTING
--- NOTE | 2020-01-15 06:07 | NUR ---
CLIENT DIDN'T SLEEP AT ALL LAST SHIFT. PERIODS OF STAFF SPLITTING NOTED. WILL MONITOR
[2020-01-15 06:15] VITALS: BP 131/78
--- NOTE | 2020-01-15 09:52 | NUR ---
DR. TAMAYO ON UNIT TO ASSESS PATIENT AND UPDATED ON COUGH.
--- NOTE | 2020-01-15 11:44 | NUR ---
NOTIFIED OF SLIGHT EXCORIATION UNDER BILATERAL BREASTS. NO OPEN AREAS. PT REQUESTING POWDER.
--- NOTE | 2020-01-15 13:35 | NUR ---
ANUSOL RECTAL CREAM GIVEN AT THIS TIME PER PT REQUEST FOR C/O DISCOMFORT ASSOCIATED WITH HEMORRHOIDS. NO BLEEIDNG NOTED. WILL MONITOR FOR EFFECT.
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
--- NOTE | 2020-01-15 15:19 | NUR ---
PT RINGS BATHROOM CALL CALEB. RN TO BATHROOM, PT SHOWS RN RENATO PAPER WITH SCANT AMOUNT OF RED BLOOD NOTED FROM HEMORRHOIDS. PT STATES "SEE THAT? IT'S MY KIDNEY. AND I ONLY HAVE ONE". REALITY PRESENTATION GIVEN. PT NOW AT NURSE'S STATION SHARING HER PUMPKIN PIE RECIPE AND INSTRUCTIONS.
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
--- NOTE | 2020-01-15 18:25 | NUR ---
PRN TYLENOL 650MG PO GIVEN AT THIS TIME PER PT REQUEST FOR C/O GENERALIZED PAIN ALL OVER. NOT RATED ON PAIN SCALE. WILL MONITOR FOR EFFECT.
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
[2020-01-15 20:00] VITALS: BP 121/67
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
--- NOTE | 2020-01-15 21:07 | NUR ---
NOTIFIED DR MABRY THAT [facility] MARKED HOLD PER DAYSHIFT MEDICAL STAFF. NO DOCUMENTATION TO WHY. HE SAID TO HOLD AND DAY STAFF WILL REEVALUATE
--- NOTE | 2020-01-16 01:55 | NUR ---
C/O SWELLING OF TONGUE DUE TO NEW MEDICATION (ROZEREM). NO SWELLING NOTED IN THROAT OR TONGUE
--- NOTE | 2020-01-16 02:55 | NUR ---
CARRYING AROUND PHLEGM IN CONTAINER SHE WANTS DOCTOR TO SEE. NOT SLEEPING MORE THAN 30 MINS AT A TIME. REMAINS ARGUMENTATIVE WITH STAFF
--- NOTE | 2020-01-16 03:51 | NUR ---
REMAINS DISRUPTIVE TO UNIT. REFUSES TO BE REDIRECTED. CALLED TO BATHROOM TO SEE STOOL ON TISSUE AND ASKED IF DR KIRK WANTS TO SEE IT. INSTRUCTED HER TO FLUSH IT AND GO TO BED. REMAINS PREOCCUPIED WITH HEMMEROIDS, AND FLUSHING TOILET. STAFF SPLITTING REMAINS UNCHANGED
--- NOTE | 2020-01-16 06:01 | NUR ---
SLEPT LESS THAN 2 BROKEN HOURS.
[2020-01-16 07:46] VITALS: BP 97/74
--- NOTE | 2020-01-16 08:24 | NUR ---
PT C/O LEG HURTING AND HAS BEEN NONCOMPLIANT WITH ELEVATING HER FOOT/LEG. MONA HOOK SHINGLES ROOFER UPDATED AND MONA SPOKE TO PATIENT. PT AGREED TO SIT IN THE RECLINER TO ELEVATE HER LEG AT THIS TIME. CUSHION PLACED IN CHAIR AND PT GIVEN A WARM BLANKET.
--- NOTE | 2020-01-16 08:30 | NUR ---
Treatment Plan meeting was held this a.m. with Dr. Aguirre, BRADLEY Fuentes, RN, AT, ENVIRONMENTAL PERMITTING SPECIALIST-S and Business Services Tech in attendance. Plan for discharge at the end of the week, beginning of next week. Pt. is currently Usp Care Resident at [facility] who is working to move Pt. to [place] which is more appropriate for Pt. behaviors.
--- NOTE | 2020-01-16 11:26 | NUR ---
Clinical Updates faxed to [place] for updates to referral and [facility] where Pt. is a Senior Java Engineer Care Resident.
--- NOTE | 2020-01-16 12:45 | NUR ---
dr steen notified that dr brown requested a breast exam for the pt d/t the pt c/o milk leaking from her breasts. dr steen stated he would see what he could do.
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
--- NOTE | 2020-01-16 15:53 | NUR ---
PM GROUP AFTERNOON GROUP THERAPY WAS CONDUCTED BY NURSING STUDENTS. PT DID NOT ATTEND BUT CHOSE TO STAY IN HER ROOM.
[2020-01-16 19:04] VITALS: BP 119/84
--- NOTE | 2020-01-16 23:32 | NUR ---
P-IRRITABLE, DEMANDING I-REDIRECTION WITH 1:1 THERAPEUTIC INTERVENTIONS AND PRESENT REALITY. EDUCATE AND ENCOURAGE MEDICATION COMPLIANCE R-PATIENT MEDICATION COMPLIANT AT HS. PATIENT REFUSED NOURISHMENT AND FLUIDS HS. PATIENT WITH SLURRED AND GARBLED SPEECH AT TIMES. PATIENT WITH SCANT TO SMALL AMOUNTS OF RECTAL BLEEDING. PATIENT NONCOMPLIANT WITH JUSTO HOSE AND ELEVATING BILATERAL LOWER EXTREMITIES. PATIENT IRRITABLE WHEN ASKED TO ELEVATED BILATERAL LOWER EXTREMITIES. PATIENT DEMANDING WITH NURSING STAFF. PATIENT IRRITABLE AND WOULD HAVE OUTBURST AND YELL OUT. PATIENT FREQUENTLY IN THE BATHROOM THROUGHOUT SHIFT. PATIENT WITH NO HALLUCINATIONS OR DELUSIONS AT THIS TIME. PATIENT WITH NO HOMICIDAL OR SUICIDAL IDEATIONS. PATIENT REFUSED SKIN ASSESSMENT AT THIS SHIFT. PATIENT WALKING AROUND ROOM WITH NO PANTS ON AND NURSING STAFF REDIRECTED PATIENT TO PUT ON CLOTHING THROUGHOUT SHIFT. P-CONTINUE TO ENCOURAGE MEDICATION COMPLIANCE, CONTINUE TO PRESENT REALITY, ENCOURAGE GROUP THERAPY WHILE AWAKE
--- NOTE | 2020-01-17 01:21 | NUR ---
PATIENT AMBULATING IN ROOM WITH NO UNDERPANTS OR PANTS ON. PATIENT WITH DOOR OPEN TO ROOM. THIS NURSE REMINDED PATIENT TO PUT ON PANTS AT THIS TIME
--- NOTE | 2020-01-17 06:13 | NUR ---
PATIENT WITH ZERO SLEEP THROUGHOUT SHIFT. Q 15 MINUTE CHECKS MAINTAINED. 24 HR chart check completed.
[2020-01-17 07:50] VITALS: BP 122/86
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
--- NOTE | 2020-01-17 09:50 | NUR ---
DR. MERA AND TEAM ON UNIT TO ASSESS PT. STATES THEY WILL BE BACK LATER TODAY TO DO BREAST EXAM REQUESTED BY DR. KIRK.
--- NOTE | 2020-01-17 11:40 | NUR ---
AM GROUP PT ATTENDED MORNING GROUP THERAPY AND PARTICIPATED IN A FEW ACTIVITIES UNABLE TO FOCUS ON ONE TASK AT A TIME. PT WAS DELUSIONAL IN CONVERSATION BUT WAS CALM AND EXHIBITED NO ADVERSE BEHAVIORS WHILE IN GROUP.
--- NOTE | 2020-01-17 15:45 | NUR ---
PM GROUP PT ATTENDED AFTERNOON GROUP THERAPY AND PARTICIPATED BY PAINTING WITH WATERCOLORS. PT WAS TALKING NON STOP BUT WOULD QUIT IF DISTRACTED BY A SONG OR REMINDED. PT EXPRESSES GRANDIOUS DELUSIONS IS HER BASE LINE. PT EXHIBITED NO ADVERSE BEHAVIORS WHILE IN GROUP.
--- NOTE | 2020-01-17 18:14 | NUR ---
THIS NURSE SPOKE TO MONA HOOK CNP. PER MONA IF PT IS NOT SLEEPING AROUND 12 AM-1AM TRY TO GIVE THE PT ATIVAN TO HELP HER SLEEP, BUT NOT ANY LATER THAN 1AM. WILL PASS ON TO HS SHIFT. PT HAS BEEN MANIC THIS SHIFT WITH FLIGHT OF IDEAS. PT DEMANDING AND INTRUSIVE. WHEN PT DOES NOT GET WHAT SHE WANTS WHEN SHE WANTS IT SHE BECOMES AGITATED AND CALLS STAFF NAMES. PT CALLED THIS NURSE A "BLONDE BAG". PT ALSO TOLD THE KNOWLEDGE MANAGEMENT CONSULTANT TO GO TO THE STORE TO BUY HER SOMETHING AND WHEN THE KNOWLEDGE MANAGEMENT CONSULTANT STATED SHE COULDNT LEAVE TO BUY HER SLIPPERS PT TOLD THE KNOWLEDGE MANAGEMENT CONSULTANT "FUCK YOU MOTHER FUCKER". PT IS REDIRECTABLE AND DOES CALM DOWN AFTER A FEW MINUTES. A&O X4. REFUSES JUSTO HOSE AND REFUSES TO SIT WITH HER FEET UP. PT HAS BEEN EDUCATED ON HER DVT AND USE OF ELIQUIS. PT NONCOMPLIANT WITH SAFETY MEASURES. BREAST EXAM COMPLETED BY SENIOR ASSET MANAGER FOR PT C/O OF LACTATING. SENIOR ASSET MANAGER UPDATED ON PROLACTIN LEVEL AND ORDERED A PROLACTIN LEVEL FOR THURSDAY. COMPLIANT WITH ALL MEDICATIONS WITH EDUCATION. BEHAVIORS MONITORED WITH Q15 MINUTE SAFETY CHECKS. CONTINUE TO EDUCATE ON MEDICATIONS AND REDIRECT WHEN NEEDED. CONTINUE TO MONITOR BEHAVIORS WITH Q15 MINUTE SAFETY CHECKS. DR IBANEZ ALSO NOTIFIED OF PT NONCOMPLIANCE WITH JUSTO HOSE AND PT REQUESTING GIULIANA WRAPS. DR IBANEZ STATED HE WOULD PUT AN ORDER IN. SEE [facility] FLOWSHEETS FOR SPECIFIC MONITORING.
[2020-01-17 19:10] VITALS: BP 128/60
--- NOTE | 2020-01-17 23:56 | NUR ---
P-IRRITABLE, DEMANDING I-REDIRECTION WITH 1:1 THERAPEUTIC INTERVENTIONS AND PRESENT REALITY. EDUCATE AND ENCOURAGE MEDICATION COMPLIANCE R-PATIENT MEDICATION COMPLIANT AT HS. PATIENT PROVIDED NOURISHMENT AND FLUIDS HS. PATIENT WITH SLURRED AND GARBLED SPEECH AT TIMES. PATIENT WITH SCANT TO SMALL AMOUNTS OF RECTAL BLEEDING. PATIENT NONCOMPLIANT WITH ELEVATING BILATERAL LOWER EXTREMITIES. PATIENT IRRITABLE WHEN ASKED TO ELEVATE BILATERAL LOWER EXTREMITIES OR WITH ANY REDIRECTION. PATIENT DEMANDING WITH NURSING STAFF. PATIENT IRRITABLE AND WOULD HAVE OUTBURST AND YELL OUT. PATIENT FREQUENTLY IN THE BATHROOM THROUGHOUT SHIFT. PATIENT WITH NO HALLUCINATIONS OR DELUSIONS AT THIS TIME. PATIENT WITH NO HOMICIDAL OR SUICIDAL IDEATIONS. PATIENT REFUSED SKIN ASSESSMENT AT THIS SHIFT. PATIENT REQUEST FOR NAPROXEN FOR RIGHT LOWER EXTREMITY PAIN AND ATIVAN 1MG PO GIVEN FOR INCREASE RESTLESSNESS AND ANXIETY. MEDICATION WITH SOMEWHAT EFFECTIVE RESULTS AT THIS TIME P-CONTINUE TO ENCOURAGE MEDICATION COMPLIANCE, CONTINUE TO PRESENT REALITY, ENCOURAGE GROUP THERAPY WHILE AWAKE
--- NOTE | 2020-01-18 06:15 | NUR ---
PATIENT SLEPT 5 HOURS OF UNINTERRUPTED SLEEP THROUGHOUT SHIFT. Q 15 MINUTE CHECKS MAINTAINED. 24 HR chart check completed.
[2020-01-18 07:28] VITALS: BP 112/72
--- NOTE | 2020-01-18 08:30 | NUR ---
Treatment Plan meeting was held this a.m. with Dr. Aguirre via telephone, AEROTRIANGULATION SPECIALIST Gina, RN, AT, NUTRITION PROFESSOR-S and Auto Painter Helper in attendance. Plan for discharge Next Week. Pt. will return to [facility].
--- NOTE | 2020-01-18 11:46 | NUR ---
AM GROUP/LIGHT THERAPY AND DISCUSSION PT ATTENDED MORNING GROUP THERAPY BUT DID NOT PARTICIPATE SHE WAS EATING HER BREAKFAST. PT WAS DEMANDING, INTRUSIVE, IMPATIENT AND RUDE TO PEERS. PT WAS EASILY REDIRECTABLE.
--- NOTE | 2020-01-18 13:26 | NUR ---
Spoke with Minerva Briggs at [facility]. Notified that [facility] had called this a.m. and declined referral due to substantial risk. Provided with Updates and discussed discharge Plans for next week. Clinical Updates faxed to facility.
--- NOTE | 2020-01-18 15:46 | NUR ---
PM GROUP/LEISURE INTERESTS PT ATTENDED AFTERNOON GROUP THERAPY BUT WAS UNABLE TO CONCENTRATE ON ANY ONE TASK FOR MORE THAN A FEW MINUTES. PT WAS INTRUSIVE AND DEMANDING. PT BECOMES ANGRY IF NEEDS ARE NOT IMMEDIATELY MET.
--- NOTE | 2020-01-18 17:48 | NUR ---
CALL PLACED TO RESPIRATORY FOR BREATHING TX PER PT'S REQUEST. NO S/S RESPIRATORY DISTRESS NOTED.
--- NOTE | 2020-01-18 17:55 | NUR ---
P: IRRITABLE MOOD, VERY DEMANDING WITH STAFF, CURSING AT STAFF, HARD TO REDIRECT. I: ONE ON ONE FOR EMOTIONAL SUPPORT, REDIRECT, CHANGE OF ENVIRONMENT AND SPACE PROVIDED. R: EFFECTIVE. PATIENT IS ALERT AND ORIENTED X4;ABLE TO VOICE NEEDS. MOOD IS IRRITABLE. DENIES HALLUCINATIONS, DELUSIONS, HI/SI OR PAIN. MEDICATION COMPLAINT WITH EDUCATION PROVIDED. Q 15 MINUTE SAFETY CHECKS. 1-2 PERSON ASSISTANCE NEEDED WITH ACTIVITIES OF DAILY LIVING, CONTINENT OF BOWEL AND BLADDER. SET UP FOR MEALS, INTAKES ARE GOOD WITH ADEQUATE FLUIDS. AMBULATORY WITH STEADY GAIT. COUGHING THROUGHOUT THE DAY REQUESTING BREATHING TREATMENT. DR. MERA NOTIFIED ON ROUNDS OF RIGHT LOWER LEG EDEMA/SWELLING WITH LEG WARM TO TOUCH. P: CONTINUE TO MONITOR FOR MANIC BEHAVIORS. THREATENING OF STAFF AND OTHERS AND BEING SEXUALLY INAPPROPRIATELY. PROVIDE ONE ON ONE, REDIRECTION, CHANGE OF ENVIRONMENT AND PROVIDING SPACE NEEDED.
--- NOTE | 2020-01-18 18:38 | NUR ---
DR. IBANEZ NOTIFIED OF CHANGE IN CONDITION WITH PATIENT COMPLAINING OF NOT BEING ABLE TO BREATH. VITALS: 97.1, 89, 24 LABORED BREATHING WITH CROUP LIKE COUGH, 123/52, 99%RA, BLOOD SUGAR 117. NURSE AT PATIENT'S BEDSIDE.
--- NOTE | 2020-01-18 18:39 | NUR ---
RAPID RESPONSE CALLED DUE TO PATIENT'S DISTRESS WITH BREATHING. STAT LABS, CHEST X RAY, TROPRONIN LEVEL, EKG ORDERED. CONITNUE TO MONITOR. RAPID RESPONSE CANCELLED AT 1847.
[2020-01-18 19:09] VITALS: BP 123/52
[2020-01-18 19:14] LABS: BASO % 0.6 % (0.0-1.0); EOS # 0.3 10*3/uL (0.0-0.4); EOS % 3.9 % (1.0-4.0); HEMATOCRIT 30.1 % (37.0-47.0); LYMPH # 1.3 10*3/uL (1.3-4.4); MEAN CELL VOLUME 95.6 fl (81.0-99.0); MEAN CORPUSCULAR HGB 29.2 pg (27.0-31.0); MEAN CORPUSCULAR HGB CONC 30.6 g/dl (33.0-37.0); MEAN PLATELET VOLUME 12.3 fl (9.6-12.3); MONO # 0.5 10*3/uL (0.1-1.0); MONO % 6.7 % (3.0-9.0); NEUT # 4.8 10*3/uL (2.3-7.9); NEUT % 69.7 % (47.0-73.0); PLATELET COUNT AUTOMATED 195 10*3/uL (130-400); RED BLOOD COUNT 3.15 10*6/uL (4.10-5.10); RED CELL DISTRI WIDTH 15.6 % (0-14.5); WHITE BLOOD COUNT 6.8 10*3/uL (4.8-10.8)
--- NOTE | 2020-01-18 19:24 | NUR ---
DR. IBANEZ NOTIFIED OF EKG RESULTS AND PATIENT NAUSEA AND HAVING EMESIS.
[2020-01-18 19:25] VITALS: BP 123/52
[2020-01-18 19:31] LABS: ALBUMIN 3.3 gm/dl (3.1-4.5); CREATININE 1.18 mg/dL (0.55-1.02); POTASSIUM 3.8 mmol/L (3.5-5.1); TOTAL PROTEIN 6.7 gm/dL (6.4-8.2)
[2020-01-18 19:34] LABS: TROPONIN I < 0.015 ng/ml (<0.045)
--- NOTE | 2020-01-18 22:15 | NUR ---
NOTIFIED DR. MABRY PT C/O MID POSTERIOR BACK PAIN. PER DR. MABRY HE IS GOING TO D/C CT WITH NEW ORDERS TO FOLLOW.
--- NOTE | 2020-01-18 22:30 | NUR ---
DR MABRY NOTIFIED OF PATIENT MANUAL BP 102/52 WITH PULSE 92; 94%^RA
--- NOTE | 2020-01-19 01:48 | NUR ---
PATIENT ASSISTED TO THE RESTROOM REQUESTED WITH STAFF X2. PT IRRITABLE, YELLING OUT, ATTEMPTING TO STRIKE OUT OF STAFF BECAUSE SHE BELIEVES HER DOLLS WILL GET STOLEN WHILE IN THE RESTROOM. PT REORIENTED AND REDIRECTED WITH MINIMAL DIFFICULTY. PT CURRENTLY SITTING UP IN [facility] CHAIR BY NURSES STATION, EYES CLOSED. RESPIRATIONS EASY AND REGULAR, NO DISTRESS NOTED. WILL CONTINUE TO MONITOR FOR ESCALATING BEHAVIORS.
[2020-01-19 04:11] VITALS: BP 135/57
--- NOTE | 2020-01-19 04:13 | NUR ---
VITALS RECHECKED A NURSING MEASURE AT THIS TIME, WNL. NO PHYSICAL COMPLAINTS OR DISTRESS NOTED.
--- NOTE | 2020-01-19 05:43 | NUR ---
PATIENT OBSERVED ON Q 15 MIN CHECKS TO HAVE SLEPT APPROX 0 HOURS THROUGHOUT THE NIGHT. PT INTERMITTENTLY YELLED OUT AND/OR HAD TEARFUL EPISODES FOR VARIOUS WANTS AND DEMANDS DESPITE ALL NEEDS BEING MET, REQUIRED FREQUENT REDIRECTION THROUGHOUT SHIFT. NO DISTRESS NOTED.
--- NOTE | 2020-01-19 06:28 | NUR ---
C/O BLE PAIN RATED 12/10. PRN NAPROXEN 220MG GIVEN AT THIS TIME. CALLED RESPIRATORY PER PT REQUEST FOR PRN BREATHING TX. LUNGS CLEAR PER AUSCULTATION, NO COUGH NOTED.
[2020-01-19 07:31] VITALS: BP 101/59; BP 116/60
[2020-01-19 08:00] LABS: BASO % 0.5 % (0.0-1.0); EOS # 0.2 10*3/uL (0.0-0.4); HEMATOCRIT 28.2 % (37.0-47.0); LYMPH # 1.1 10*3/uL (1.3-4.4); LYMPH % 18.6 % (27.0-41.0); MEAN CELL VOLUME 95.3 fl (81.0-99.0); MEAN CORPUSCULAR HGB 29.1 pg (27.0-31.0); MEAN CORPUSCULAR HGB CONC 30.5 g/dl (33.0-37.0); MEAN PLATELET VOLUME 12.1 fl (9.6-12.3); MONO # 0.4 10*3/uL (0.1-1.0); MONO % 6.9 % (3.0-9.0); NEUT # 4.2 10*3/uL (2.3-7.9); NEUT % 69.7 % (47.0-73.0); PLATELET COUNT AUTOMATED 199 10*3/uL (130-400); RED BLOOD COUNT 2.96 10*6/uL (4.10-5.10); RED CELL DISTRI WIDTH 15.6 % (0-14.5); WHITE BLOOD COUNT 6.1 10*3/uL (4.8-10.8)
--- NOTE | 2020-01-19 08:30 | NUR ---
Treatment Plan meeting was held this a.m. with Dr. Aguirre, RN, AT, LINE MAINTAINER-S and Oil Burner Technician in attendance. Plan for discharge Next Week. Pt. will return to [facility] at discharge.
[2020-01-19 08:33] LABS: ALBUMIN 3.4 gm/dl (3.1-4.5); CREATININE 1.12 mg/dL (0.55-1.02); POTASSIUM 3.7 mmol/L (3.5-5.1); TOTAL PROTEIN 6.7 gm/dL (6.4-8.2)
--- NOTE | 2020-01-19 11:00 | NUR ---
P: PT IRRITABLE/ANGRY WITH STAFF, REFUSING TO ACKNOWLEDGE STAFF AT TIMES OR TO ANSWER ASSESSMENT QUESTIONS. PT OBSERVED TO BE SLAMMING DOORS AND SLAMMING THE TELEPHONE DOWN ON THE DESK AFTER COMPLETEING HER CALL. PT RESISITIVE WITH AM MEDICATIONS. I:ENCOURAGE MED COMPLIANCE AND PROVIDE MED EDUCATION, ADVISE PT THAT HER BEHAVIORS OF SLAMMING THINGS IS NOT APPROPRIATE AND PROVIDE OPTIONS FOR MORE APPROPRIATE BEHAVIORS. PROVIDE LOW STIMULATION ENVIRONMENT FOR PT TO CALM, PROVIDE 1:1 FOR PT TO VOICE FEELINGS AND ENCOURAGE PT TO PARTICIPATE IN ASSESSMENT R: PT ALERT TO PERSON, WILL NOT ANSWER ADDITIONAL ASSESSMENT QUESTIONS, CONTINUES TO BE IRRITABLE WITH STAFF. PT MED COMPLIANT WITH MUCH DIFFICULTY, MED EDUCATION PROVIDE BY 2 RN'S.PT CONTINUES TO SLAM DOORS. NO HALLUCINATIONS OR DELUSIONS NOTED. NO SUICIDAL THOUGHTS OR BEHAVIORS NOTED. PT REFUSED SKIN ASSESSMENT AND TX TO ARM. PT AMBULATORY THROUGHOUT UNIT, GAIT STEADY. PT CONTINENT OF BOWEL AND BLADDER, EPISODES OF INCONTINENCE NOTED, CARE PROVIDED NEEDED. PT REMOVED GIULIANA BANDAGES TO BLE, PROVIDED EDUCATION, PT CONTINUES TO REMOVE. PT NON-COMPLIANT WITH ELEVATING BLE. P: MONITOR PT BEHAVIORS ON Q15 MIN SAFETY CHECKS, ENCOURAGE MED COMPLIANCE AND PROVIDE MED EDUCATION, ENCOURAGE PT TO WEAR GIULIANA BANDAGES TO BLE AND ELEVATE. PROVIDE EMOTIONAL SUPPORT AND 1:1 FOR PT TO VOICE FEELINGS,ENCOURAGE PT TO PARTICIPATE IN ASSESSMENTS, PROVIDE LOW STIMULATION ENVIRONMENT FOR PT TO CLAM.
--- NOTE | 2020-01-19 11:48 | NUR ---
AM GROUP PT WAS IN AND OUT OF MORNING GROUP THERAPY. PT IS ALL OVER THE PLACE WITH ACTIVITIES QUICKLY SWITCHING FROM ONE TO ANOTHER AND BACK AGAIN, PT CROCHETTED, PLAYED WITH THE DOLL, WROTE IN A JOURNAL AND SOCIALIZED WITH THE NURSING STUDENTS. PT IS LABILE AND DEMANDING.
--- NOTE | 2020-01-19 12:16 | NUR ---
PRN TYLENOL 650MG PO GIVEN AT THIS TIME PER PT REQUEST FOR C/O GENERALIZED PAIN ALL OVER. PT REFUSES TO RATE ON PAIN SCALE. WILL MONITOR FOR EFFECT.
--- NOTE | 2020-01-19 15:54 | NUR ---
PM GROUP/FUN AND GAMES PT ATTENDED THE FIRST PART OF AFTERNOON GROUP THERAPY AND PARTICIPATED BY CROCHETTING. PT WAS FOCUSED AND ON TASK FOR THE MOST PART. PT LEFT THE DAYROOM TO GO LAY DOWN AND DID NOT RETURN.
--- NOTE | 2020-01-19 17:29 | NUR ---
SPOKE WITH DR IBANEZ AT [phone] RE: PT REQUESTING A BREATHING TX AND C/O SHORTNESS OF BREATH. ADVISED THAT PT IS NOT DUE TIL ALMOST 7PM, PER DR IBANEZ IT IS OK TO GIVE NOW. SPOKE WITH RESPIRATORY AND PROVIDED UPDATE ON DR ALFARO.
[2020-01-19 20:00] VITALS: BP 102/62
--- NOTE | 2020-01-19 23:20 | NUR ---
P-CONFUSION. INTRUSIVE/DISRUPTIVE. DEMANDING. I-PROVIDE 1:1 WITH THERAPEUTIC INTERVENTIONS. PRESENT REALITY AND REORIENT. REDIRECT NEEDED. ENCOURAGE MEDICATION COMPLIANCE AND EDUCATE. MONITOR SLEEP. R- PATIENT ALERT AND ORIENTED X3 WITH CONFUSION. PT ISOLATIVE TO ROOM AND BED SINCE BEGINNING OF SHIFT, ONLY COMING OUT TO EAT HS SNACK. PT FREQUENTLY HITTING CALL LIGHT THIS HS DESPITE ALL NEEDS BEING MET, WILL STATE TO STAFF "CALL AN AMBULANCE FOR ME SO I CAN GO BACK HOME". PT BECOMES IRRITABLE/ARGUMENTATIVE WITH REDIRECTION OR REORIENTATION. NO COMBATIVE BEHAVIORS OBSERVED. MEDICATION COMPLIANT WITHOUT DIFFICULTY AFTER REVIEW. RECEIVED PRN ALEVE 220MG ORDERED FOR C/O BILATERAL HIP AND LEG PAIN WITH NO RATING AT 2036. NO FURTHER COMPLAINTS NOTED SINCE ADMINISTRATION, PRN EFFECTIVE. NO OTHER PHYSICAL COMPLAINTS VOICED. PT AMBULATORY WITH A STEADY GAIT, CONTINENT/INCONTINENT OF BOWEL AND BLADDER. NO DISTRESS NOTED. P-CONTINUE TO MONITOR MOOD AND BEHAVIORS. MAINTAIN Q 15 MIN CHECKS AND PRN FOR SAFETY.
--- NOTE | 2020-01-20 01:40 | NUR ---
PATIENT AWAKE, CONTINUES TO BE INTRUSIVE/DISRUPTIVE, INTERRUPTING STAFF WHILE MANAGING CARE OF OTHER PATIENTS, HITTING CALL LIGHT FOR VARIOUS WANTS DESPITE ALL NEEDS BEING MET, AND ENTERING QUIET ROOMS WHERE OTHER PEERS ARE SLEEPING. PT UNRECEPTIVE TO REDIRECTION, BECOMES ARGUMENTATIVE, CURSES AT STAFF. WILL CONTINUE TO MONITOR FOR ESCALATING BEHAVIORS.
--- NOTE | 2020-01-20 02:00 | NUR ---
CALLED RESPIRATORY PER PT REQUEST FOR PRN BREATHING TX. LUNGS CLEAR PER AUSCULTATION, NO COUGH NOTED.[id number].
--- NOTE | 2020-01-20 06:17 | NUR ---
PATIENT SLEPT APPROX 1.5 HOURS THIS SHIFT INTERRUPTED. PT PREOCCUPIED WITH CHANGING CLOTHES AND DEPENDS THIS AM, REQUIRES FREQUENT REDIRECTION. NO DISTRESS NOTED.
--- NOTE | 2020-01-20 06:57 | NUR ---
24 HOUR CHART CHECK COMPLETED.
[2020-01-20 07:42] VITALS: BP 116/74
--- NOTE | 2020-01-20 08:30 | NUR ---
Treatment Plan meeting was held this a.m. with Dr. Aguirre via telephone, ROOM SERVER Gina, RN, AT, QUALITY REP-S and Sports Book Writer in attendance. Plan for discharge Next week. Pt. will return to [facility].
--- NOTE | 2020-01-20 11:31 | NUR ---
Spoke with Minerva Briggs at [facility]. Provided with Updates and Discharge Plans for Next week. Pt. will require a Level of Care Prior to discharge due to No Bed Hold Days. CLinical Updates faxed to facility.
--- NOTE | 2020-01-20 11:41 | NUR ---
AM GROUP PT WAS PRESENT AT THE START OF MORNING GROUP THERAPY AND CROCHETTED FOR A LITTLE BIT. PT LEFT THE DAYROOM TO USE THE RESTROOM AND DID NOT RETURN
--- NOTE | 2020-01-20 12:51 | NUR ---
Pt was irritable with this internal communications writer this AM. Pt asked this internal communications writer to pt's room. While in pt's room, pt began asking for more pairs of sock and different pants. Pt then asked, "Did you get me more stuffed animals? You have to get me more." Explained to pt that this internal communications writer did not have anything to give pt. Pt stated, "What good are you for then? That's ok. Just leave."
--- NOTE | 2020-01-20 14:51 | NUR ---
P: PT ANGRY.IRRITABLE WITH STAFF AND PEERS. PT RESTLESS, UP AND DOWN OUT OF THE CHAIR, IN AND OUT OF HER ROOM. PT DEMANDING, CURSING AND NAME CALLING STAFF AND PEERS. PT WILL SLAM DOOR TO HER ROOM AFTER BECOMING UPSET. I: PROVIDE EMOTIONAL SUPPORT AND 1:1 FOR PT TO VOICE FEELINGS, PROVIDE LOW STIMULATOIN ENVIRONEMENT FOR PT TO CALM, ASSIST PT IN IDENTIFYING COPING SKILLS FOR WHEN SHE BECOMES UPSET AND GIVE OPTIONS OF MORE APPROPRIATE BEHAVIORS. R: PT ALERT TO PERSON, PLACE AND TIME. PT MED COMPLIANT WITHOUT DIFFICULTY. NO HALLUCINATIONS OR DELUSIONS NOTED. PT DENIES ANY SUICIDAL THOUGHTS AT THS TIME. PT REFUSED SKIN ASSESSMENT/TREATMENT. PT CONTINUES TO BE ANGRY/IRRITABLE WITH STAFF AND PEERS, CONTINUES TO NAME CALL AND CURSE AT TIMES. PT LESS RESTLESS THIS AFTERNOON. PT CONTINUES TO SLAM DOORS AT TIMES WHEN SHE BECOMES UPSET. PT AMBULATORY THROUGHOUT UNIT, GAIT STEADY. PT CONTINENT OF BOWEL AND BLADDER. P: MONITOR PT BEHAVIORS ON Q15 MIN SAFETY CHECKS, ENCOURAGE MED COMPLIANCE AND PROVIDE MED EDUCATION, CONTINUE TO PROVIDE OPTIONS FOR MORE APPROPRIATE BEHAVIORS, AND ASSIST IN INDENTIFYING COPING SKILLS, PROVIDE EMOTIONAL SUPPORT AND 1:1 FOR PT TO VOICE FEELINGS.
--- NOTE | 2020-01-20 15:41 | NUR ---
PM GROUP/GRATITUDE PT WAS IN AND OUT OF AFTERNOON GROUP THERAPY. PT PARTICIPATED IN SEVERAL ACTIVITIES BUT WAS UNABLE TO STAY WITH ONE FOR VERY LONG. PT WAS LESS TALKATIVE AND INTRUSIVE.
[2020-01-20 19:09] VITALS: BP 110/68
--- NOTE | 2020-01-20 21:12 | NUR ---
24 HR chart check completed.
--- NOTE | 2020-01-20 22:12 | NUR ---
PATIENT RESTLESS AND AGGITATED. CONTINUALYY CALLING OUT FOR STAFF. STRIPPING BED AND WANTING FRESH PULL UPS WHEN HER BED WAS JUST CHANGED AND HER PULLUPS ARE FRESH AND CLEAN. UNABLE TO REDIRECT. REQUESTED PRN NEB TREATMENT. RESP ON UNIT TO ADMINISTER. RESP HAVE BEEN EASY AND EVEN. VSS. CONTINUALLY DEMANDING STAFF TO DO MENIAL TASKS THAT SHE CAN DO HERSELF. HAS BEEN MED COMPLIANT. WILL CONTINUE Q 15 MINUTE CHECKS.
--- NOTE | 2020-01-21 05:41 | NUR ---
PATIENT COMPLAINING OF RT LOWER LEG PAIN. +2 PITTING EDEMA TO LOWER RT LEG. CALF IS WARM TO TOUCH AND PINK. ENCOURAGED TO KEEP ELEVATED. dOES HAVE AN ORDER FOR GIULIANA WRAPS BUT REFUSES TO LEAVE THEM ON. DR MABRY CALLED AND MADE AWARE. WILL F/U.
--- NOTE | 2020-01-21 06:08 | NUR ---
PATIENT SLEPT ABOUT4.5 HOURS LAST NIGHT
[2020-01-21 07:53] VITALS: BP 105/66
--- NOTE | 2020-01-21 10:00 | NUR ---
DR MERA ON UNIT TO ASSESS PT, UPDATE PROVIDED.
--- NOTE | 2020-01-21 10:06 | NUR ---
PT REQUESTING BREATHING TREATMENT, NOTIFIED RESP THERAPY.
--- NOTE | 2020-01-21 11:34 | NUR ---
MESSAGE LEFT FOR ZURI BARNES NP RE: PT PROLACTIN LEVEL.
--- NOTE | 2020-01-21 11:36 | NUR ---
SPOKE DR SARMIENTO RE: PT PROLACTIN LEVEL, NO FURTHER ORDERS AT THIS TIME.
--- NOTE | 2020-01-21 11:51 | NUR ---
ZURI BARNES CHAPLAINCY RETURNED CALL AND UPDATED ON PROLACTIN LEVEL NO FURTHER ORDERS AT THIS TIME.
--- NOTE | 2020-01-21 16:09 | NUR ---
PT REQUESTING BREATHING TREATMENT, NOTIFIED RESP THERAPY.
--- NOTE | 2020-01-21 16:47 | NUR ---
P: PT IRRITABLE WITH STAFF AND PEERS, MOOD IS LABILE. PT DEMANDING TO STAFF AND PEERS. PT CONSTANTLY RINGING HER CALL ELLIS FOR NO REASON AND STATING "OH NO I DIDN'T DO THAT." PT RESTLESS, UP AND DOWN OUT OF CHAIR, IN AND OUT OF BED, CHANGING HER CLOTHES MULTIPLE TIMES AND THROWING CLEAN CLOTHES ON THE FLOOR. I: PROVIDE EMOTIONAL SUPPORT AND 1:1 FOR PT TO VOICE FEELINGS, ENCOURAGE MED COMPLIANCE AND PROVIDE MED EDUCATION, PRACTICE LIMIT SETTING WITH PT, PROVIDE OPTIONS FOR MORE APPROPRIATE BEHAVIORS. R: PT ALERT TO PERSON, PLACE AND TIME. PT MED COMPLIANT WITHOUT DIFFICULTY, MED EDUCATION PROVIDED. PT MOOD CONTINUES TO BE LABILE. PT CONTINUES TO BE DEMANDING OF STAFF AND PEERS, PT BECOMES ANGRY AND TEARFUL WHEN SHE DOES NOT GET HER WAY WHEN SHE DEMANDS STAFF TO GO BUY HER STUFFED ANIMALS OR DEMANDS PEERS DO THINGS FOR HER. PT REMOVED FROM DINING ROOM AND REDIRECTED TO LOW STIMULATION ENVIRONMENT TO CALM. PT CONTINUES TO RING CALL ELLIS MULTIPLE TIMES AND THEN STATE TO STAFF "OH NO I DIDN'T DO THAT, I'M TELLING YOU." NO HALLUCINATIONS OR DELUSIONS NOTED. PT DENIES ANY SUICIDAL THOUGHTS. PT AMBULATORY THROUHGOUT UNIT, GAIT STEADY. PT CONTINENT OF BOWEL AND BLADDER, EPISODES OF INCONTINENCE NOTED, CARE PROVIDED NEEDED. P: MONITOR PT BEHAVIORS ON Q15 MIN SAFETY CHECKS, ENCOURAGE MED COMPLIANCE AND PROVIDE MED EDUCATION, PRACTICE LIMIT SETTING WITH PT, PROVIDE OPTIONS OF APPROPRIATE BEHAVIORS, PROVIDE EMOTIONAL SUPPORT AND 1:1 FOR PT TO VOICE FEELINGS, PROVIDE LOW STIMULATION ENVIRONMENT FOR PT TO CALM.
--- NOTE | 2020-01-21 17:03 | NUR ---
PATIENT COMPLAINING OF RIGHT LOWER LEG PAIN, RATING PAIN 10/10. PRN NAPROXEN 220MG PO GIVEN AT THIS TIME.
[2020-01-21 20:00] VITALS: BP 117/72
--- NOTE | 2020-01-22 02:12 | NUR ---
P-DEMANDING, INTRUSIVE, VULGAR LANGUAGE I-REDIRECTION WITH 1:1 THERAPEUTIC INTERVENTIONS AND PRESENT REALITY. EDUCATE AND ENCOURAGE MEDICATION COMPLIANCE R-PATIENT MEDICATION COMPLIANT AT HS. PATIENT PROVIDED NOURISHMENT AND FLUIDS AT HS. PATIENT INTRUSIVE WITH PEERS AND REDIRECTION PROVIDED. PATIENT DEMANDING WITH NURSING STAFF AND NURSING STAFF ATTEMPTING TO MEET ALL PATIENT DEMANDS. PATIENT YELLING AND USING VULGAR LANGUAGE WITH STAFF WHEN PATIENT UNRECEPTIVE WITH REDIRECTION. PATIENT CONTINUES TO AMBULATE ON UNIT WITH NO FOOTWEAR OR SLIPPERS. MULTIPLE ATTEMPTS MADE FOR PATIENT TO WEAR NO SKID FOOTWEAR. BILATERAL LOWER EXTREMITY WITH EDEMA. PATIENT ONLY ELEVATING BILATERAL LOWER EXTREMITIES FOR VERY SHORT PERIODS OF TIME. PATIENT REQUESTING MEDICATION TO HELP WITH INCREASE IN ANXIETY. PATIENT PROVIDED VISTARIL AT HS WITH SOMEWHAT EFFECTIVE RESULTS. PATIENT REQUESTING BREATHING TREATMENT AT THIS TIME WITH EFFECTIVE RESULTS. PATIENT WITH NO HALLUCINATIONS OR DELUSIONS AT THIS TIME. PATIENT WITH NO SUICIDAL OR HOMICIDAL IDEATIONS. P-CONTINUE TO ENCOURAGE MEDICATION COMPLIANCE, CONTINUE TO PRESENT REALITY, ENCOURAGE GROUP THERAPY WHILE AWAKE
--- NOTE | 2020-01-22 06:47 | NUR ---
PATIENT SLEPT 1 HOURS OF INTERRUPTED SLEEP THROUGHOUT SHIFT. Q 15 MINUTE CHECKS MAINTAINED. 24 HR chart check completed.
[2020-01-22 07:19] VITALS: BP 116/64
--- NOTE | 2020-01-22 09:06 | NUR ---
PT C/O LEG PAIN, REQUESTING NAPROXEN, PT MEDICATED WITH ALEVER PO PRN PER ORDERS.
--- NOTE | 2020-01-22 10:48 | NUR ---
DR HOWELL ON UNIT TO ASSESS PT, UPDATE PROVIDED.
--- NOTE | 2020-01-22 15:04 | NUR ---
P: PT IRRITABLE WITH STAFF AND PEERS AND YELLING OUT AT TIMES. PT RESTLESS, UP AND DOWN OUT OF CHAIR, IN AND OUT OF HER ROOM. PT CONTINUOULSY REMOVING BED LINENS AND THROWING THEM ON THE FLOOR AFTER THEY ARE CHANGED. PT CURSING AT STAFF AND PEERS, USING VULGAR LANGUAGE WHEN ON THE TELPHONE AND WITH STAFF WHEN SHE BECOMES UPSET. PT CONTINUOUSLY TOUCHING HER HEMMHROIDS AND MAKING THEM BLEED THEN WIPING BLOOD ON HER TOWELS AND AND ALL OVER THE TOILET IN HER ROOM. PT NON-COMPLIANT WITH WEARING NON-SKID SOCKS, AND WEARING GIULIANA-WRAPS TO BLE D/T EDEMA. I: PROVIDE EMOTIONAL SUPPORT AND 1:1 FOR PT TO VOICE FEELINGS, PROVIDE OPTIONS FOR APPROPRIATE BEHAVIORS, ENCOURAGE MED COMPLIANCE, PROVIDE HEMMHROID CREAM TO PT AND PROVIDE MED EDUCATION, ADVISE PT THAT VULGAR LANGUAGE IS NOT TOLERATED ON THIS UNIT AND PHONE CALLS WILL BE LIMITED IF BEHAVIORS CONTINUE. PRACTICE LIMIT SETTING ON PT, ADVISED PT THAT IF HER BED LINENS ARE CLEAN, SHE CANNOT CONTIUE TO THROW THEM ON FLOOR, ENCOURAGE PT TO WEAR NON-SKID SOCKS AND GIULIANA BANDAGES TO BLE AND ELEVATE BLE R: PT ALERT TO PERSON, PLACE AND TIME. PT MED COMPLIANT WITH MINIMAL DIFIFCULTY, ATTEMPTING TO REFUSE MEDS STATING " I DON'T WANT THAT BLOOD THINNER, I DON'T NEED IT." NURSE PROVIDED MED EDUCATION,AND PT TOOK MEDS. PT CONTINUES TO BE IRRITABLE WITH STAFF AND PEERS, CONTINUES TO CURSE AND USE VULGAR LANGUAGE AIMED AT STAFF AND WHILE ON THE TELPEHONE. PT BECOME UPSET WITH STAFF WHEN ADVISED THAT THE VULGAR LANGUAGE IS NOT APPROPRIATE, SLAMMING THE PHONE DOWN ON THE DESK AND STATING "WELL GO FK YOURSELF, I WON'T USE THE PHONE THEN." PT REMAINS RESTLESS AT THIS TIME, CONTINUES TO BE UP AND DOWN OUT OF HER CHAIR AND IN AND OUT OF HER ROOM, UNABLE TO CONCENTRATE ON A TASK FOR ANY LENGTH OF TIME. PT CONTINUES TO BE NON -COMPLIANT WITH NON-SKID SOCKS REMOVING SEVERAL PAIRS, AND NON-COMPLIANT WITH LEAVEING GIULIANA BANDAGES INTACT TO BLE AND ELEVATING BLE. PT AMBULATORY THROUGHOUT UNIT, GAIT STEADY. PT CONTINENT OF BOWEL AND BLADDER. HEMMHROID CREAM PROVIDED TO PT AFTER SHOWER. P: MONITOR PT BEHAVIORS ON Q15 MIN SAFETY CHECKS, ENCOURAGE MED COMPLIANCE AND PROVIDE MED EDUCATION, ENCOURAGE COMPLIANCE WITH GIULIANA BANDAGES AND NON -SKID SOCKS, PROVIDE PT OPTIONS FOR APPROPRIATE BEHAVIORS, PRACTICE LIMIT SETTING WITH PT, PROVIDE EMOTIONAL SUPPORT AND 1:1 FOR PT TO VOICE FEELINGS.
[2020-01-22 19:28] VITALS: BP 121/69
--- NOTE | 2020-01-22 19:31 | NUR ---
Patient resting quietly at this time. Respirations easy and regular. Vital signs stable. No overt distress. MXAIM WALSH
--- NOTE | 2020-01-22 19:55 | NUR ---
PT INTRUSTIVE, DEMANDING, PREOCCUPIED, IRRITABLE. ASSESSED FOR ORIENTATION, MOOD, AFFECT. ASSESSED FOR SI/HI. REDIRECTED AND PROVIDED WITH CALM SUPPORT. LIMIT SETTING PROVIDED. ENCOURAGED TO CONSUME HS SNACK AND FLUIDS. ADMINISTERED MEDICATIONS PER ORDERS. PT IS ALERT, ORIENTED X 4. MOOD CONTINUES WITH IRRITABILITY AND AGITATION, AFFECT CONGRUENT WITH MOOD. PT BECOMES LOUD AND DEMANDING, INCREASINGLY SO WITH REDIRECTION AND LIMIT SETTING. PT REFUSED HS SNACK. WILL CONTINUE TO REDIRECT APPROPRIATE. WILL PROVIDE DIVERSIONAL ACTIVITIES FOR PREOCCUPATION. WILL CONTINUE TO MONIOTR Q 15 MIN PER POLICY FOR SAFETY.
--- NOTE | 2020-01-22 22:49 | NUR ---
The patient has no complaints and is resting comfortably. MAXIM WALSH
--- NOTE | 2020-01-22 22:50 | NUR ---
24 HR chart check completed.
--- NOTE | 2020-01-23 06:36 | NUR ---
REFUSED MORNING MEDICATIONS BECAUSE WE WON'T GIVE HER ANOTHER PAIR OF NONSLICK SOCKS. THESE SOCKS WERE GIVEN TO HER LAST NIGHT AND SHE THREW THEM IN GARBAGE DEMANDING A NEW PAIR. SOCKS WERE NOT SOILED. HAS BEEN GETTING A NEW PAIR AT LEAST ONCE DAILY SHE REFUSES TO WEAR THEM AFTER THEY ARE WASHED, VERBALLY CUSSING STAFF OUT PRIOR TO BEING ASKED TO LEAVE DININGROOM AND GO TO HER ROOM. ALL EXPLANATIONS REBUFFED. WILL CONTINUE TO MONITOR
--- NOTE | 2020-01-23 06:56 | NUR ---
PATIENT SLEPT 4-5 HOURS OF INTERRUPTED SLEEP THROUGHOUT SHIFT. Q 15 MINUTE CHECKS MAINTAINED. 24 HR chart check completed.
[2020-01-23 07:53] VITALS: BP 118/62
--- NOTE | 2020-01-23 11:50 | NUR ---
P: PATIENT PREOCCUPIED WITH TOILETING, PICKING AT HEMRROIDS. INTRUSIVE AT TIMES AND DEMANDING TOWARDS STAFF. SELECTIVE WITH TAKING MEDICATIONS. PATIENT STATING "I'M NOT TAKING SEROQUEL", STAFF SPLITTING AT TIMES. ASKED ABOUT HALLUCINATION/DELUSION. PATIENT STATES "NO, I HAVE PREMONITIIONS" I: ONE ON ONE FOR EMOTIONAL SUPPORT, REDIRECTION AND SETTING LIMITS NEEDED. ACTIVITIES OFFERED R: EFFECTIVE. PATIENT IS ALERT TO PERSON, PLACE, TIME (MONTH/YEAR) AND SITUATION; ABLE TO VOICE NEEDS. MOOD IS IRRITABLE AND DEMANDING. DENIES ANY HALLUCINATIONS, DELUSIONS, HI/SI OR PAIN. 1 PERSON ASSIST VERBAL CUEING FOR ACTIVITIES OF DAILY LIVING, CONTINENT OF BOWEL AND BLADDER. SET UP FOR MEALS, INTAKES ARE GOOD WITH ADEQUATE FLUIDS. AMBULATORY WITH STEADY GAIT. NON COMPLAINT WITH WEARING SOCKS AND ELEVATING RIGHT LOWER LEG. MEDICATTION COMPLAINT WITH ENCOURAGEMENT AND Q 15 MINUTE SAFETY CHECKS MAINTAINED. P: CONTINUE TO MONITOR MOOD, BEING INTRUSIVE AND DEMANDING OF STAFF AND OTHER PATIENTS. PROVIDE ONE ON ONE, REDIRECTION NEEDED.
--- NOTE | 2020-01-23 11:51 | NUR ---
AM GROUP PT WAS PRESENT AT THE START OF MORNING GROUP THERAPY AND WORKED ON BEADING FOR ABOUT 10 MINUTES. PT EXPRESSED THE NEED TO GO LAY DOWN AND LEFT THE DAYROOM. PT DID NOT RETURN
--- NOTE | 2020-01-23 12:23 | NUR ---
PATIENT COMPLAINING OF RIGHT LOWER EXTREMITY, RATING 10/10. PRN NAPROXEN 220MG PO GIVEN AT THIS TIME.
--- NOTE | 2020-01-23 13:23 | NUR ---
NO FURTHER COMPLAINTS OF PAIN. PRN ALEVE EFFECTIVE.
--- NOTE | 2020-01-23 14:52 | NUR ---
Level of Care Submitted to [facility] [phone].
--- NOTE | 2020-01-23 15:20 | NUR ---
Clinical Updates faxed to [facility] attn: Minerva [phone].
--- NOTE | 2020-01-23 15:39 | NUR ---
Shift chart check completed.
--- NOTE | 2020-01-23 15:44 | NUR ---
PM GROUP PT ATTENDED AFTERNOON GROUP THERAPY AND PARTICIPATED BY CROCHETTING AND SOCIALIZING WITH PEERS. PT IS LESS DEMANDING AND INTRUSIVE THIS AFTERNOON AND IS EASILY REDIRECTED.
--- NOTE | 2020-01-23 15:45 | NUR ---
REMEDIOS RENAE CNP ON UNIT TO ASSESS PATIENT.
[2020-01-23 19:12] VITALS: BP 122/64
--- NOTE | 2020-01-23 23:56 | NUR ---
P-DEMANDING, INTRUSIVE, PREOCCUPIED I-REDIRECTION WITH 1:1 THERAPEUTIC INTERVENTIONS AND PRESENT REALITY. EDUCATE AND ENCOURAGE MEDICATION COMPLIANCE R-PATIENT MEDICATION COMPLIANT AT HS. PATIENT PROVIDED NOURISHMENT AND FLUIDS AT HS. PATIENT INTRUSIVE WITH PEERS AND REDIRECTION PROVIDED. PATIENT DEMANDING WITH NURSING STAFF AND NURSING STAFF ATTEMPTING TO MEET ALL PATIENT DEMANDS. PATIENT YELLING AT NURSING STAFF WHEN PATIENT IS UNRECEPTIVE WITH REDIRECTION. PATIENT CONTINUES TO AMBULATE ON UNIT WITH NO FOOTWEAR OR SLIPPERS AT TIMES. MULTIPLE ATTEMPTS MADE FOR PATIENT TO WEAR NO SKID FOOTWEAR. BILATERAL LOWER EXTREMITY WITH EDEMA. PATIENT ONLY ELEVATING BILATERAL LOWER EXTREMITIES FOR VERY SHORT PERIODS OF TIME. PATIENT REQUESTING TYLENOL FOR COMPLAINT OF RIGHT LOWER EXTREMITY PAIN. TYLENOL WITH EFFECTIVE RESULTS AT THIS TIME. PATIENT PREOCCUPIED WITH HEMORRHOIDS THIS SHIFT. PATIENT WITH NO HALLUCINATIONS OR DELUSIONS AT THIS TIME. P-CONTINUE TO ENCOURAGE MEDICATION COMPLIANCE, CONTINUE TO PRESENT REALITY, ENCOURAGE GROUP THERAPY WHILE AWAKE
--- NOTE | 2020-01-24 06:48 | NUR ---
PATIENT SLEPT2 HOURS OF INTERRUPTED SLEEP THROUGHOUT SHIFT. Q 15 MINUTE CHECKS MAINTAINED. 24 HR chart check completed.
[2020-01-24 07:32] VITALS: BP 112/67
--- NOTE | 2020-01-24 11:20 | NUR ---
Treatment Plan meeting was held this a.m. with BRADLEY Fuentes, RN, AT, AUTO BODY MECHANIC APPRENTICE-S and Fire Support Specialist in attendance. Plan for discharge Thu/. Level of Care Pending.
--- NOTE | 2020-01-24 11:45 | NUR ---
AM GROUP PT WAS IN AND OUT OF GROUP THERAPY AND WAS UNABLE TO PARTICIPATE WITH ONE TASK AT A TIME. PT WOULD LEAVE THE ROOM AND RETURN WITH A NEW DEMAND FOR AN ACTIVITY AND WHEN PROVIDED THAT ACITIVITY WOULD LEAVE THE ROOM AGAIN. PT WAS LESS INTRUSIVE TODAY BUT STILL DEMANDING OF STAFF AND PEERS.
[2020-01-24 11:46] LABS: BILIRUBIN Negative (Negative); BLOOD Negative (Negative); CLARITY Clear (Clear); COLOR Yellow (Yellow); GLUCOSE Negative (Negative); KETONE Negative (Negative); LEUKO ESTERASE Negative (Negative); NITRITE Negative (Negative); PH 6.5 (4.5-8.0); UROBILINOGEN 0.2 E.U./dl (0.0-1.0)
[2020-01-24 12:47] LABS: EPITHELIAL CELLS 0-2
--- NOTE | 2020-01-24 15:07 | NUR ---
PM GROUP PT ATTENDED AFTERNOON GROUP THERAPY FOR A SHORT TIME BEFORE LEAVING THE DAYROOM. PT RE ENTERED AND WAS CUSING BECAUSE SHE WAS UPSET WITH THE NURSE. PT WAS ASKED TO LEAVE THE DAYROOM IF SHE WAS GOING TO SWEAR. PT LEFT AND DID NOT RETURN.
--- NOTE | 2020-01-24 16:28 | NUR ---
PATIENT COMPLAINING OF RIGHT LOWER LEG PAIN, RATING 10/10. PRN NAPROXEN 220MG PO GIVEN AT THIS TIME.
--- NOTE | 2020-01-24 17:30 | NUR ---
NO FUTHER COMPLAINTS OF PAIN. PRN NAPROXEN EFFECTIVE.
--- NOTE | 2020-01-24 18:30 | NUR ---
P: IRRITABLE MOOD, WHEN PATIENT REDIRECTION REGARDING HAVING PATIENT BRING PEN OVER TO NURSE'S STATION AFTER BEING DONE. PATIENT TOSSED PEN OVER WINDOW AT NURSE'S STATION, WALKED AWAY AND CALLED THE NURSES "BITCHES" I: ONE ON ONE FOR EMOTIONAL SUPPORT, REDIRECTION AND SETTING LIMITS NEEDED AND ENCOURAGED TO ATTEND GROUP ACTIVITIES. POSITIVE REINFORCEMENT PROVIDED ON BEING COMPLIANT WITH SAFETY MEASURES AND CARING FOR RIGHT LOWER EXTREMITY. R: EFFECTIVE. PATIENT IS ALERT TO PERSON, PLACE, TIME (MONTH/YEAR) AND SITUATION; ABLE TO VOICE NEEDS. MOOD IS IRRITABLE. DENIES ANY HALLUCINATIONS, DELUSIONS, HI/SI OR PAIN. 1 PERSON ASSIST VERBAL CUEING FOR ACTIVITIES OF DAILY LIVING, CONTINENT OF BOWEL AND BLADDER. SET UP FOR MEALS, INTAKES ARE GOOD WITH ADEQUATE FLUIDS. AMBULATORY WITH STEADY GAIT. COMPLAINT WITH WEARING SOCKS,WRAP TO RIGHT LOWER EXTREMITY AND ELEVATING LEG. MEDICATTION COMPLAINT WITH ENCOURAGEMENT AND Q 15 MINUTE SAFETY CHECKS MAINTAINED. P: CONTINUE TO MONITOR MOOD, BEING INTRUSIVE AND DEMANDING OF STAFF AND OTHER PATIENTS. PROVIDE ONE ON ONE, REDIRECTION NEEDED.
[2020-01-24 19:55] VITALS: BP 105/60
--- NOTE | 2020-01-24 22:15 | NUR ---
PT CONTINENT OF BOWEL AND BLADDER. PT REQUEST'S TO WEAR PULL UPS AND HAVE A DISPOSABLE PAD ON HER BED. Q 15 MIN CHECKS MAINTAINED.
--- NOTE | 2020-01-24 23:51 | NUR ---
PATIENT IS ALERT AND ORIENTED TO PERSON, PLACE, TIME AND SITUATION. PATIENT IRRITABLE WITH STAFF. PATIENT DENIES ANY SI/HI. DENIES HALLUCINATIONS AND DELUSIONS AND DOES NOT APPEAR TO BE RESPONDING TO INTERNAL STIMULI. PATIENT IS INTRUSIVE, DEMANDING AND RESTELSS. PATIENT IS AMBULATORY WITH STEADY GAIT. INTAKES ARE GOOD WITH ADEQUATE FLUIDS. PATIENT IS MEDICATION COMPLIANT WITH EDUCATION. WILL CONTINUE TO MONITOR MOODS/BEHAVIORS. Q 15 MINUTE SAFETY CHECKS MAINTAINED.
--- NOTE | 2020-01-25 02:06 | NUR ---
PATIENT UP WANTING TO EAT CHEERIOS. REDIRECTED PATIENT BACK TO BED. Q 15 MINUTE SAFETY CHECKS MAINTAINED.
--- NOTE | 2020-01-25 04:40 | NUR ---
PATIENT REQUESTING A BREATHING TX AT THIS TIME. CALLED RESPIRATORY AT THIS TIME.
--- NOTE | 2020-01-25 04:56 | NUR ---
RESPIRATORY ON UNIT TO ADMINISTER BREATHING TREATMENT. WILL CONTINUE TO MONITOR.
--- NOTE | 2020-01-25 05:51 | NUR ---
PATIENT SLEPT PAST 0245. 24 HOUR CHART CHECK COMPLETED.
[2020-01-25 08:00] VITALS: BP 123/62
--- NOTE | 2020-01-25 09:00 | NUR ---
REMEDIOS RENAE CNP ON UNIT TO ASSESS PATIENT.
--- NOTE | 2020-01-25 09:00 | NUR ---
Treatment Plan meeting was held this a.m. with Dr. Aguirre via telephone, BRADLEY Fuentes, RN, AT, AIRPLANE MECHANIC-S and Test Facility Engineer in attendance. Plan for discharge / Thursday with [facility].
--- NOTE | 2020-01-25 09:40 | NUR ---
PATIENT IN DINING ROOM IN [place] CHAIR WITH LEGS ELEVATED, NO FURTHER COMPLAINTS OF PAIN. PRN ALEVE EFFECTIVE.
[2020-01-25 09:54] LABS: BASO % 0.5 % (0.0-1.0); EOS # 0.3 10*3/uL (0.0-0.4); EOS % 4.4 % (1.0-4.0); HEMATOCRIT 25.7 % (37.0-47.0); MEAN CELL VOLUME 94.1 fl (81.0-99.0); MEAN CORPUSCULAR HGB 28.2 pg (27.0-31.0); MEAN PLATELET VOLUME 11.9 fl (9.6-12.3); MONO # 0.4 10*3/uL (0.1-1.0); MONO % 6.6 % (3.0-9.0); NEUT # 4.3 10*3/uL (2.3-7.9); NEUT % 71.3 % (47.0-73.0); PLATELET COUNT AUTOMATED 217 10*3/uL (130-400); RED BLOOD COUNT 2.73 10*6/uL (4.10-5.10); RED CELL DISTRI WIDTH 15.6 % (0-14.5)
[2020-01-25 10:33] LABS: ALBUMIN 3.4 gm/dl (3.1-4.5); CREATININE 1.12 mg/dL (0.55-1.02); POTASSIUM 3.4 mmol/L (3.5-5.1); TOTAL PROTEIN 6.8 gm/dL (6.4-8.2)
--- NOTE | 2020-01-25 10:52 | NUR ---
REMEDIOS RENAE, DEVAN NOTIFIED OF POTASSIUM LEVEL 3.4.
--- NOTE | 2020-01-25 11:50 | NUR ---
AM GROUP PT ATTENDED MORNING GROUP THERAPY FOR A FEW MINUTES BEFORE GOING TO HER ROOM. PT WAS INTRUSIVE AND RUDE BUT LESS DEMANDING. PT DID NOT RETURN TO THE DAYROOM
--- NOTE | 2020-01-25 15:43 | NUR ---
PM GROUP PT ATTENDED AFTERNOON GROUP THERAPY AND PARTICIPATED IN SEVERAL ACTIVITIES. PT WAS HYPERVERBAL AND WAS RUDE TO A PEER. OTHERWISE, PT EXHIBITED NO ADVERSE BEHAVIORS WHILE IN GROUP
--- NOTE | 2020-01-25 16:08 | NUR ---
P: IRRITABLE AND DEMANDING AT TIMES. I: ONE ON ONE FOR EMOTIONAL SUPPORT, REDIRECTION AND SETTING LIMITS NEEDED AND ENCOURAGED TO ATTEND GROUP ACTIVITIES. POSITIVE REINFORCEMENT PROVIDED ON BEING COMPLIANT WITH SAFETY MEASURES AND CARING FOR RIGHT LOWER EXTREMITY. R: EFFECTIVE. PATIENT IS ALERT TO PERSON, PLACE, TIME AND SITUATION; ABLE TO VOICE NEEDS. MOOD IS IRRITABLE. DENIES ANY HALLUCINATIONS, DELUSIONS, HI/SI OR PAIN. 1 PERSON ASSIST VERBAL CUEING FOR ACTIVITIES OF DAILY LIVING, CONTINENT OF BOWEL AND BLADDER. SET UP FOR MEALS, INTAKES ARE GOOD WITH ADEQUATE FLUIDS. AMBULATORY WITH STEADY GAIT. MEDICATION COMPLAINT WITH EDUCATION. COMPLIANT WITH ELEVATING RIGHT LEG AND WEARING WRAPS PER ORDER. AMBULATORY WITH STEADY GAIT. Q 15 MINUTE SAFETY CHECKS MAINTAINED. P: CONTINUE TO MONITOR MOOD, BEING INTRUSIVE AND DEMANDING OF STAFF AND MEDICATION COMPLIANCE. PROVIDE ONE ON ONE FOR EMOTIONAL SUPPORT, REDIRECTION NEEDED.
--- NOTE | 2020-01-25 17:00 | NUR ---
PRN ANUSOL HC CREAM APPLIED FOR COMFORT. PATIENT HAS PROTRUDING HEMRRHOIDS THAT ARE BLEEDING. PATIENT ENCOURAGE TO LAY IN BED. WARM COMPRESSES PROVIDED TO ANUS/HEMRRHOIDS.
--- NOTE | 2020-01-25 17:14 | NUR ---
PT AWARE OF NEED FOR STOOL SAMPLE. PT PROVIDED WITH HAT FOR TOILET. PT AGREES TO ALERT STAFF WHEN SHE HAS BM TO BE COLLECTED FOR SAMPLE.
[2020-01-25 20:00] VITALS: BP 117/63
--- NOTE | 2020-01-25 21:59 | NUR ---
DR BOTELLO UPDATED ABOUT PATIENT POSITIVE FECAL OCCULT STOOL. DR BOTELLO UPDATED ABOUT LAB WORK ORDERED IN AM. DR BOTELLO TO REVIEW RESULTS TO SEE IF ANY FURTHER ORDERS ARE NEEDED.
[2020-01-25 22:40] VITALS: BP 84/44
[2020-01-26] VITALS (7 sets, daily range): BP systolic 92–108; BP diastolic 56–74
--- NOTE | 2020-01-26 03:35 | NUR ---
01/25/[address] BOTELLO CALLED AND UPDATED ABOUT PATIENT HAVING SMALL TO MODERATE EMESIS. EMESIS BROWN WITH SMALL AMOUNT OF FOOD CHUNCKS THROUGHOUT. DR BOTELLO ALSO UPDATED ABOUT PATIENT BLOOD PRESSURE RESULT OF 84/[address] BOTELLO TO COME SEE PATIENT ON THE UNIT. PATIENT RECEIVED NEW ORDERS FOR IVF 01/25/20 AT 2320-NURSING TURN DOWN WORKER ON UNIT AND UPDATED ON PATIENT'S STATUS. THIS NURSE WITH ATTEMPT TO START IV WITH 22GAUGE IN LEFT ANTECUBITAL. NO BLOOD RETURN AFTER ATTEMPTING TO FLUSH LINE WITH NSS. TOURNIQUET REMOVED. PRESSURE DRESSING APPLIED. 01/25/[address] BOTELLO ON UNIT TO SEE PATIENT. DR WHITLEY IN ORDER FOR NSS AT 100ML/HR WITH VTBI OF 500ML. THIS NURSE UPDATED DR BOTELLO ABOUT NEW MEDICATION THAT PATIENT RECEIVED AT HS OF HALCION 0.25MG. PATIENT STILL COUGHING WITH SMALL AMOUNT OF LIQUID EMESIS AT THIS TIME 01/25/20 AT 2355 THIS NURSE WITH ATTEMPT TO START IV WITH 22 GAUGE IN RIGHT ANTICUBITAL. NO BLOOD RETURN AFTER ATTEMPTING TO FLUSH LINE WITH NSS. TOURNIQUET REMOVED. PRESSURE DRESSING APPLIED. NURSING TURN DOWN WORKER AWARE AND WILL BRING IVF TO UNIT AND A NURSE FROM THE FLOOR TO COME HELP TO INSERT IV. PATIENT WITH PULSE OXIMETY OF 88%RA. OXYGEN APPLIED AT 2L VIA NASAL CANNULA. PATIENT WITH PULSE OXIMETY AT 96% ON 2L O2. 01/26/20 AT 0035 NURSING TURN DOWN WORKER ON UNIT WITH IVF ORDERED FOR PATIENT AND NURSE FROM UNIT TO HELP INSERT IV. IV 24 GAUGE INSERTED INTO LEFT FOREARM. NSS INFUSING INTO LEFT FOREARM WITHOUT DIFFICULTY. NO EDEMA, REDNESS, OR ELEVATED TEMPERATURE AT IV SITE. WILL CONTINUE TO MONITOR PATIENT BLOOD PRESSUR
--- NOTE | 2020-01-26 05:55 | NUR ---
DR BOTELLO UPDATED ABOUT IVF BEING COMPLETED. IV FLUIDS STOPPED AT THIS TIME AND WAITING ON LAB RESULTS. PATIENT AROUSABLE AND AGITATED AT THIS TIME. DR BOTELLO AWARE OF OXYGEN APPLIED TO PATIENT AND NEW ORDER FOR CHEST XRAY. DR BOTELLO UPDATED ABOUT BLOOD PRESSURE RESULTS
--- NOTE | 2020-01-26 06:28 | NUR ---
PATIENT SLEPT 6 HOURS OF INTERRUPTED SLEEP THROUGHOUT SHIFT. Q 15 MINUTE CHECKS MAINTAINED. 24 HR chart check completed.
--- NOTE | 2020-01-26 07:29 | NUR ---
DR IBANEZ CALLED TO CONFIRM ORDER TO DRAW PACKED CELLS. DR IBANEZ WITH CONFIRMATION TO DRAW
--- NOTE | 2020-01-26 08:04 | NUR ---
SPOKE TO DR IBANEZ AND MADE HIM AWARE THAT CHEST XRAY RESULTS ARE BACK AND ALSO THAT LAB WAS ON UNIT TO DRAW BLOOD FOR SECOND TIME AND WAS UNSUCCESSFUL.
--- NOTE | 2020-01-26 08:10 | NUR ---
PATIENT RESTING IN ELVIN CHAIR AT THIS TIME. OXYGEN VIA NASAL CANNULA IN PLACE AND FUNCTIONING. Q 15MINUTE SAFETY CHECKS MAINTAINED.
[2020-01-26 10:01] LABS: HEMATOCRIT 29.6 % (37.0-47.0); MEAN CELL VOLUME 93.7 fl (81.0-99.0); MEAN CORPUSCULAR HGB 28.2 pg (27.0-31.0); MEAN CORPUSCULAR HGB CONC 30.1 g/dl (33.0-37.0); MEAN PLATELET VOLUME 11.6 fl (9.6-12.3); PLATELET COUNT AUTOMATED 225 10*3/uL (130-400); RED BLOOD COUNT 3.16 10*6/uL (4.10-5.10); RED CELL DISTRI WIDTH 15.7 % (0-14.5)
[2020-01-26 10:28] LABS: BUN 29 mg/dl (7-24); CHLORIDE 107 mmol/L (98-107); CREATININE 1.04 mg/dL (0.55-1.02); POTASSIUM 3.7 mmol/L (3.5-5.1); SODIUM 141 mmol/L (136-145)
[2020-01-26 10:32] LABS: OVALOCYTES FEW; PLATELET SUFFICIENCY NORMAL (NORMAL); POLYCHROMASIA SLIGHT; TOTAL CELLS COUNTED 100 #CELLS
--- NOTE | 2020-01-26 10:47 | NUR ---
SPOKE TO DR IBANEZ TO MAKE AWARE OF LAB VALUES.
--- NOTE | 2020-01-26 11:41 | NUR ---
AM GROUP PT DID NOT ATTEND MORNING GROUP THERAPY. PT WAS IN A QUIET ROOM RESTING.
[2020-01-26] MEDS ORDERED: FUROSEMIDE40 MG PO (12:20)
[2020-01-26] MEDS ORDERED: LEVOFLOXACIN750 M2 PO (12:20)
[2020-01-26] MEDS ORDERED: DOXYCYCLINE MO100 M1 PO (12:20)
--- NOTE | 2020-01-26 13:05 | NUR ---
PATIENT LEFT FLOOR VIA GERICHAIR WITH ONE RN AND ONE MHW WITH ALL BELONGINGS.
--- NOTE | 2020-01-26 13:16 | NUR ---
Clinical Updates faxed to [facility]. Spoke with Minerva Briggs and Notified her of Pt. Transfer to Medical Unit.
== END 2020-01-26 13:05 | disposition short-term general hospital (02) | DRG 885 ==
LOC: 3N 14:51
PROVIDERS: Counselor Professional; Internal Medicine; Registered Nurse; Student in an Organized Health Care Education/Training Program; ADMIT Psychiatry & Neurology Psychiatry; ATTEND Psychiatry & Neurology Psychiatry
DX: F25.0 Schizoaffective disorder, bipolar type (principal); I11.0 Hypertensive heart disease with heart failure; N18.30 Chronic kidney disease, stage 3 unspecified; I82.511 Chronic embolism and thrombosis of right femoral vein; J44.9 Chronic obstructive pulmonary disease, unspecified; I50.9 Heart failure, unspecified; F41.9 Anxiety disorder, unspecified; E66.3 Overweight; E03.9 Hypothyroidism, unspecified; K21.9 Gastro-esophageal reflux disease without esophagitis; J45.909 Unspecified asthma, uncomplicated; E11.9 Type 2 diabetes mellitus without complications; M19.91 Primary osteoarthritis, unspecified site; F32.9 Major depressive disorder, single episode, unspecified; M79.89 Other specified soft tissue disorders; Z20.828 Contact with and (suspected) exposure to other viral communicable diseases; G89.29 Other chronic pain; K59.00 Constipation, unspecified; G47.00 Insomnia, unspecified; Z88.0 Allergy status to penicillin; M25.471 Effusion, right ankle; Z88.2 Allergy status to sulfonamides; Z88.8 Allergy status to other drugs, medicaments and biological substances; Z91.041 Radiographic dye allergy status; Z68.28 Body mass index [BMI] 28.0-28.9, adult; Z79.899 Other long term (current) drug therapy

== ENCOUNTER 2020-01-26 13:09 | Inpatient (IN) | payer MEDICARE, MEDICAID ==
[~2020-01-26] VITALS: Ht 165.1 cm; Wt 75.4 kg
[~2020-01-26 13:09] MED LIST changes: +DOXYCYCLINE MO100 M1 PO; +FUROSEMIDE40 MG PO; +INVEGA6 MG PO; +LEVOFLOXACIN750 M2 PO; +VISTARIL50 MG PO
--- NOTE | 2020-01-26 13:34 | NUR ---
A 69, admitted to , under the services of RENEA Fernandez DO with a diagnosis of PNEUMONIA. Chief complaint is PNEUMONIA. Patient arrived via bed from [place]. Monitor applied. Initial assessment completed. Vital signs taken and recorded. RENEA FERNANDEZ DO notified of admission to the unit. Orders received. See assessment for past medical history, medications and allergies. Patient and/or family oriented to unit. [facility] EDU visitation policy reviewed. Clothing/patient valuable form completed. CELESTINA BATISTA
[2020-01-26 13:50] VITALS: BP 100/48
--- NOTE | 2020-01-26 19:15 | NUR ---
DR BOTELLO NOTIFIED THAT PATIENT IS REFUSING IV MEDICATIONS WELL HER MEDICATIONS NEEDING RECONCILED. NO NEW ORDERS.
[2020-01-26 20:00] VITALS: BP 90/50
[2020-01-27] VITALS: BP 113/54
--- NOTE | 2020-01-27 06:14 | NUR ---
CALL PLACED TO DR LOVE REGARDING NEW CONSULT. AWAITING CALL BACK.
[2020-01-27 08:00] VITALS: BP 118/66
--- NOTE | 2020-01-27 09:00 | NUR ---
case management visits with patient, she is a resident of [facility] and will return when discharged. case management will follow
[2020-01-27 12:00] VITALS: BP 126/61
--- NOTE | 2020-01-27 13:37 | NUR ---
SPEECH THERAPY Nursing screen complete. Formal dysphagia evaluation not recommened at this time. This department is avaiable should change in status occur or further observation warrants consult. Thank you. Alyx Rivas MA, CCC-LEGAL SUPPORT MANAGER
[2020-01-27 16:00] VITALS: BP 114/93
[2020-01-27 20:00] VITALS: BP 110/84
[2020-01-28] VITALS (11 sets, daily range): BP systolic 110–155; BP diastolic 54–89
[2020-01-28 07:25] LABS: MEAN CORPUSCULAR HGB 28.7 pg (27.0-31.0); MEAN CORPUSCULAR HGB CONC 29.6 g/dl (33.0-37.0); MEAN PLATELET VOLUME 12.5 fl (9.6-12.3); PLATELET COUNT AUTOMATED 214 10*3/uL (130-400); RED BLOOD COUNT 2.37 10*6/uL (4.10-5.10); WHITE BLOOD COUNT 12.6 10*3/uL (4.8-10.8)
[2020-01-28 07:34] LABS: ALBUMIN 2.6 gm/dl (3.1-4.5); ALKALINE PHOSPHATASE 103 U/L (45-117); BUN 23 mg/dl (7-24); CHLORIDE 111 mmol/L (98-107); CREATININE 0.83 mg/dL (0.55-1.02); POTASSIUM 3.9 mmol/L (3.5-5.1); SGOT/AST 10 IU/L (3-35); SGPT/ALT 13 U/L (12-78); SODIUM 144 mmol/L (136-145); TOTAL PROTEIN 5.4 gm/dL (6.4-8.2)
[2020-01-28 07:45] LABS: OVALOCYTES FEW; PLATELET SUFFICIENCY NORMAL (NORMAL); TOTAL CELLS COUNTED 100 #CELLS
[2020-01-28 22:30] LABS: BASO # 0.1 10*3/uL (0.0-0.1); BASO % 0.5 % (0.0-1.0); EOS # 0.4 10*3/uL (0.0-0.4); EOS % 3.2 % (1.0-4.0); HEMATOCRIT 30.4 % (37.0-47.0); LYMPH # 1.4 10*3/uL (1.3-4.4); LYMPH % 11.8 % (27.0-41.0); MEAN CORPUSCULAR HGB 28.4 pg (27.0-31.0); MEAN CORPUSCULAR HGB CONC 31.3 g/dl (33.0-37.0); MEAN PLATELET VOLUME 11.8 fl (9.6-12.3); MONO # 0.6 10*3/uL (0.1-1.0); MONO % 5.2 % (3.0-9.0); NEUT # 9.1 10*3/uL (2.3-7.9); NEUT % 78.7 % (47.0-73.0); NUCLEATED RED BLOOD CELL 0.2 % (0.0-0.0); PLATELET COUNT AUTOMATED 221 10*3/uL (130-400); RED BLOOD COUNT 3.34 10*6/uL (4.10-5.10); RED CELL DISTRI WIDTH 15.8 % (0-14.5); WHITE BLOOD COUNT 11.5 10*3/uL (4.8-10.8)
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
[2020-01-29] VITALS: BP 138/66
[2020-01-29 06:30] LABS: BASO # 0.1 10*3/uL (0.0-0.1); BASO % 0.6 % (0.0-1.0); EOS # 0.4 10*3/uL (0.0-0.4); EOS % 4.1 % (1.0-4.0); HEMATOCRIT 32.5 % (37.0-47.0); LYMPH # 1.3 10*3/uL (1.3-4.4); LYMPH % 14.3 % (27.0-41.0); MEAN CELL VOLUME 92.1 fl (81.0-99.0); MEAN CORPUSCULAR HGB 28.3 pg (27.0-31.0); MEAN CORPUSCULAR HGB CONC 30.8 g/dl (33.0-37.0); MEAN PLATELET VOLUME 11.7 fl (9.6-12.3); MONO # 0.5 10*3/uL (0.1-1.0); MONO % 5.1 % (3.0-9.0); NEUT % 75.3 % (47.0-73.0); PLATELET COUNT AUTOMATED 227 10*3/uL (130-400); RED BLOOD COUNT 3.53 10*6/uL (4.10-5.10); WHITE BLOOD COUNT 9.2 10*3/uL (4.8-10.8)
--- NOTE | 2020-01-29 06:43 | NUR ---
PT REFUSES HER SCDS, REFUSES ANY ORIENTATION, PT UNABLE TO GET SPUTUM UP, C/O IV HURTING, REMOVED SL PER REQUEST DUE TO HURTING HER, REFUSED INSERTION OF A NEW ONE, STATED, "LATER", WILL CONTINUE TO MONITOR FOR SAFETY, CALL LIGHT IN REACH.
[2020-01-29 06:45] LABS: BUN 15 mg/dl (7-24); CHLORIDE 111 mmol/L (98-107); CREATININE 0.85 mg/dL (0.55-1.02); POTASSIUM 3.8 mmol/L (3.5-5.1); SODIUM 142 mmol/L (136-145)
--- NOTE | 2020-01-29 10:02 | NUR ---
ID CONSULT CALLED TO DR. LORENZ FOR COVID + AND ABX MANAGEMENT @[phone].
[2020-01-29 12:00] VITALS: BP 141/76
--- NOTE | 2020-01-29 15:59 | NUR ---
tYLENOL 650MG GIVEN P.O. FOR COMPLAINTS OF gENERALIZED bODY ACHES AND PAINS. RATED PAIN 10 ON 1-10 SCALE WITH 10 BEING THE WORST PAIN. TOLERATES WELL. WILL FOLLOW. PT. HAD CALL LIGHT WITHIN REACH. ADVISED TO CALL IF FURTHER COMPLAINTS OF PAIN.
--- NOTE | 2020-01-29 15:59 | NUR ---
TYLENOL 650MG GIVEN P.O. FOR COMPLAINTS OF GENERALIZED BODY ACHES AND PAINS. TOLERATES WELL. CALL LIGHT IS IN REACH. ENCOURAGED PT. TO CALL IF FURTHER COMPLAINTS AND NO RELIEF OF PAIN SYMPTOMS.
--- NOTE | 2020-01-29 16:33 | NUR ---
RESTING QUIETLY IN BED WITH HEAD OF BED ELEVATED. DENIES FURTHER COMPLAINTS OF PAIN AND DISCOMFORT. TYLENOL EFFECTIVE.
--- NOTE | 2020-01-29 16:33 | NUR ---
RESIDENT CALLED TO SWITCH PT'S ABX TO PO. PT REFUSES NEW IV SITE.
[2020-01-29 20:00] VITALS: BP 147/83
--- NOTE | 2020-01-29 20:00 | NUR ---
HEAD TO TOE ASSESSMENT COMPLETED, PT DENIED ANY PAIN OR DISCOMFORT. PT HAS A LABILE MOOD WELL A FLAT AFFECT. PT PARANOID AT TIMES WITH BIZARRE BEHAVIOUR. PT AMBULATES ROOM AND WHEN ASSESS WAS IN BATHJROOM VOIDING WITHOUT DIFFICULTY SND HSD S MEDIUM BM. NO C/O PAIN PARK DISCOMFORT. PT RESISTANT TO CARE. PT REFUSES SCD'S, IV'S AND MD IS AWARE OF HER BEHAVIOR. REPORT GIVEN TO PEDRO GARCÍA. INFORMED PT OF TRANSFER THEN PT WAS TRANSFERRED TO ANOTHER UNIT, NO DISTRESS NOTED, NO C/O PAIN OR DISCOMFORT.
--- NOTE | 2020-01-29 20:15 | NUR ---
Patient took off her Exelon patch and it is unable to be placed back on her.
--- NOTE | 2020-01-29 20:33 | NUR ---
Patient arrived on unit in stable condition. No IV upon arrival. Patient steady on feet and walked unassisted to bed. Patient Re-oriented on unit rules. Bed alarm placed. Will continue to monitor.
[2020-01-30] VITALS: BP 144/79
--- NOTE | 2020-01-30 07:29 | NUR ---
ROUGH RICE GRADER FAXED UPDATES TO [facility].
[2020-01-30 08:00] VITALS: BP 164/82
--- NOTE | 2020-01-30 09:48 | NUR ---
SALES OPERATIONS DIRECTOR LEFT VOICE MESSAGE FOR JAJA [phone] ASKING FOR A RETURN CALL.
[2020-01-30 12:00] VITALS: BP 158/72
--- NOTE | 2020-01-30 13:30 | NUR ---
Pt up to void. Unable to obtain urine in the hat due to patient being uncooperative. Returned patient to bed and used bladder scan. 567ml of urine found in bladder. Tammie Kulkarni notified. New orders entered.
--- NOTE | 2020-01-30 14:15 | NUR ---
ATTEMPTED TO DO STRAIGHT CATH PER ORDER. PATIENT UPSET AND REFUSING. DISCUSSED WITH PATIENT THE NEED AND THAT IT WOULD MAKE HER FEEL BETTER. CONTINUED TO REFUSE. REMEDIOS RENAE NOTIFIED. ORDER CHANGED FROM STRAIGHT CATH TO [facility] WHEN PATIENT ALLOWS US TO.
--- NOTE | 2020-01-30 14:51 | NUR ---
Patient body alarm sounding. Requesting to sit in chair at bedside. Assisted patient in to chair. Body alarm reattached. Patient continues to refuse catheter.
[2020-01-30 16:00] VITALS: BP 156/80
--- NOTE | 2020-01-30 16:00 | NUR ---
pt finally allowed staff to insert falk clear yellow urine noted 1400ml out
[2020-01-30 20:00] VITALS: BP 150/90
[2020-01-31] VITALS: BP 158/84
[2020-01-31 08:00] VITALS: BP 151/72
--- NOTE | 2020-01-31 10:40 | NUR ---
SPEECH THERAPY Patient referred for MBS due to concerns of aspiration PNA. Patient was transferred from [facility] to medical floor due to multifocal PNA. CXR revealed bibasilar consolidation possibly from aspiration of vomit. Additional medical history includes schizophrenia, COPD, GERD, DM, HTN, CHF, and hypothyroidism. She was previously tested for COVID-19 with negative results. Patient was interviewed prior to MBS, however patient is poor historian. She endorsed occassional difficulty when eating, and reported "burning" in her chest during swallow. She is edentulous, but states she is able to consume regular solid food items without difficulty with mastication. Patient followed simple verbal commands with minimal visual cue. Lingual strength was mildly reduce, in addition to reduced strength and ROM of labial skills. Patient required encouragement throughout assessment to consume solids and liquids. During evaluation, she consumed bites of applesauce, turkey sandwich, and animal crackers, and consumed sips of nectar like liquid by cup. Attempted trials of thin liquid barium, however patient refused additional trials of liquids with encouragement and re-direction ineffective. Patient demonstrated functional mastication with oral skills WNL. No penetration or aspiration was observed across all trials of solids and liquids, with single swallow clearing oral and pharyngeal cavitities. She consumed impulsively large sip of nectar-like liquid via cup which required multiple swallows, however no penetration/aspiration observed. Patient is recommended regular diet with thin liquids with use of safe swallowing strategies. Although thin liquids were not assessed during evaluation, she is recommended thin liquids as she displayed tolerance of large, consecutive sip of nectar-like liquid. Speech therapy to perform follow up treatment to ensure safety and tolerance of recommended diet with adherence to safe swallowing strategies with focus on consumption of small, single sips of liquids. Results and recoomendations were shared with patient's nurse via phone who verbalized understanding. Thank you for your consultation. Alyx Rivas MA CCC-CUTTING MACHINE OFFBEARER
[2020-01-31] MEDS ORDERED: DOXYCYCLINE MO100 M1 PO (11:05)
[2020-01-31] MEDS ORDERED: ZITHROMAX500 MG PO (11:06)
[2020-01-31] MEDS ORDERED: XARELTO20 M1 PO (11:11)
--- NOTE | 2020-01-31 11:39 | NUR ---
PREPARING FOR DISCHARGE TO [facility] THIS AFTERNOON.
--- NOTE | 2020-01-31 11:43 | NUR ---
SLASHER TENDER NOTIFIED OF PATIENT DISCHARGE. SLASHER TENDER SPOKE WITH RN. SLASHER TENDER SPOKE WITH [facility] AND ARRANGED FOR A 1PM DISCHARGE. SLASHER TENDER SPOKE WITH J[facility] AND INFORMED HER OF DISCHARGE. SLASHER TENDER NOTIFIED WC LAINE OF TIME. SLASHER TENDER LEFT MESSAGE FOR JOSE ALY WITH MATERIALS CLERK MAXIM OF PATIENTS DISCHARGE AND TIME. SLASHER TENDER TO FAX DISCHARGE ORDERS TO [facility]. CUT OFF SAW OPERATOR PIPE BLANKS FIDELIA TRINH LPN TO FAX LEVEL OF CARE TO [facility].
--- NOTE | 2020-01-31 12:32 | NUR ---
DRUG PURCHASER FAXED DEMOGRAPHICS TO [facility].
--- NOTE | 2020-01-31 13:08 | NUR ---
PATIENT DISCHARGED TO [facility] BY AMBULANCE SERVICE AT THIS TIME.
--- NOTE | 2020-01-31 13:29 | NUR ---
REPORT CALLED TO RECEIVING NURSE AT [facility].
== END 2020-01-31 13:08 | DRG 178 ==
LOC: 5E 13:09 → 4E 13:09 → 5E 01-29 19:53
PROVIDERS: Student in an Organized Health Care Education/Training Program; ADMIT Student in an Organized Health Care Education/Training Program; ATTEND Student in an Organized Health Care Education/Training Program
PROC: 30233N1 Transfusion of Nonautologous Red Blood Cells into Peripheral Vein, Percutaneous Approach (ICD-10-PCS; 2020-01-28)
PROC: BD11YZZ Fluoroscopy of Esophagus using Other Contrast (ICD-10-PCS; principal; 2020-01-31)
DX: J69.0 Pneumonitis due to inhalation of food and vomit (principal); I50.30 Unspecified diastolic (congestive) heart failure; K92.2 Gastrointestinal hemorrhage, unspecified; Z79.1 Long term (current) use of non-steroidal anti-inflammatories (NSAID); J44.9 Chronic obstructive pulmonary disease, unspecified; J45.909 Unspecified asthma, uncomplicated; Z20.828 Contact with and (suspected) exposure to other viral communicable diseases; F41.9 Anxiety disorder, unspecified; E66.3 Overweight; E03.9 Hypothyroidism, unspecified; K21.9 Gastro-esophageal reflux disease without esophagitis; E11.9 Type 2 diabetes mellitus without complications; F32.9 Major depressive disorder, single episode, unspecified; F25.0 Schizoaffective disorder, bipolar type; M19.91 Primary osteoarthritis, unspecified site; F03.90 Unspecified dementia, unspecified severity, without behavioral disturbance, psychotic disturbance, mood disturbance, and anxiety; I11.0 Hypertensive heart disease with heart failure; D64.9 Anemia, unspecified; K44.9 Diaphragmatic hernia without obstruction or gangrene; R33.9 Retention of urine, unspecified; Z88.0 Allergy status to penicillin; Z88.2 Allergy status to sulfonamides; Z68.28 Body mass index [BMI] 28.0-28.9, adult; Z88.8 Allergy status to other drugs, medicaments and biological substances; Z79.899 Other long term (current) drug therapy; Z86.718 Personal history of other venous thrombosis and embolism